=== PATIENT | male | born 1985 | race Caucasian/White ===

== ENCOUNTER 2018-02-07 09:56 | Emergency (ER) | payer MEDICAID, SELFPAY ==
[2018-02-07 09:56] VITALS: BP 145/84; PULSE 91; RESP 18; TEMP 36.6; O2SAT 96; BMI 58.4
--- NOTE | 2018-02-07 10:54 | ED.DEP ---
ED Disposition - Plan for ED Patient: Chief Complaint: Abscess Instructions: ED Abscess IandD Prescriptions: Cephalexin [Keflex] 500 mg PO Q6 #40 capsule Smz/Tmp Ds [Bactrim Ds] 1 tablet PO BID #14 tablet Referrals: Care Physician,No Primary [Primary Care Provider] -
--- NOTE | 2018-02-07 11:03 | ED.DCSUM_ITS ---
- ER Visit Summary Date of Service: 02/07/18 Chief Complaint: Abscess History of Present Illness: The patient is a 32 M presenting with abscess left buttock. This started approximatley 1 week ago. Patient states that initially it was draining at home and now he has been unable to drain it. He states that he was trying to pop it. He denies putting any sharp objects in the area to drain it. He has had no fever. He has history of previous abscess but not in this area. Denies other complaints. Physical Examination: Vitals are stable. Patient is afebrile. Alert no acute distress. HEENT exam is unremarkable. Neck is supple. Lungs are clear and equal bilaterally. Heart is regular rate and rhythm. Abdomen is soft nontender nondistended. Left buttock 2 cm abscess with fluctuance and induration. Normal rectum. Extremities are unremarkable. Skin is warm and dry. No focal neurologic deficit. Remainder of exam is unremarkable. Emergency Department Course and Treatment: Pus was aspirated with 18 gauge needle. I&D was then performed. Anesthetized with lidocaine, incised with 11 blade. Moderate amount of pus was drained. Probed to break up loculations. Irrigated with saline. Patient tolerated this well. He is given Bactrim and Keflex. Advised to follow closely with his primary care physician. Advised return to ED if he has any worsening complaints. Disposition: Discharge home Impression: Buttock abscess, I&D This note was generated with [employer] dictation software. It may contain incorrect words, spelling, and punctuation that were not noted in review of the chart prior to signing ED Disposition - Plan for ED Patient: Chief Complaint: Abscess Instructions: ED Abscess IandD Prescriptions: Cephalexin [Keflex] 500 mg PO Q6 #40 capsule Smz/Tmp Ds [Bactrim Ds] 1 tablet PO BID #14 tablet Referrals: Care Physician,No Primary [Primary Care Provider] -
[2018-02-07] MEDS: Cephalexin 250 MG Capsule 500 MG PO (11:07)
[2018-02-07] MEDS: Smz/Tmp Ds Tablet 1 TABLET PO (11:07)
--- NOTE | 2018-02-07 11:10 | ED.RN ---
PT cleaned of blood with bath wipes. 2x2 placed on abscess and secured with tape. All questions answered, no further concerns.
== END 2018-02-07 11:13 | disposition home or self-care (01) ==
PROVIDERS: Emergency Provider Emergency Medicine
DX: L02.31 Cutaneous abscess of buttock (principal); Z72.0 Tobacco use
CPT/HCPCS: 10060; 99284

== ENCOUNTER 2018-06-16 20:39 | Emergency (ER) | payer MEDICAID, SELFPAY ==
[2018-06-16 20:40] VITALS: BP 154/100; PULSE 88; RESP 16; TEMP 36.7; O2SAT 95; BMI 60.3
--- NOTE | 2018-06-16 20:47 | EKG12_ITS ---
Test Reason : CP Blood Pressure : / mmHG Vent. Rate : 084 BPM Atrial Rate : 084 BPM P-R Int : 172 ms QRS Dur : 100 ms QT Int : 360 ms P-R-T Axes : 049 070 063 degrees QTc Int : 425 ms Normal sinus rhythm Normal ECG Confirmed by TERESA HERNANDEZ MD ([id number]), manuscript editor ERIC BIRMINGHAM ([id number] on 06/17/2018 1:33:57 PM Referred By: REUBEN Confirmed By:TERESA HERNANDEZ MD
[2018-06-16 21:01] VITALS: PULSE 88; RESP 15; O2SAT 95
--- NOTE | 2018-06-16 21:10 | RAD_ITS ---
STUDY: X-RAY CHEST REASON FOR EXAM: Male, 32 years old. Chest pain TECHNIQUE: Single frontal view COMPARISON: None. FINDINGS: The lungs are clear and expanded. There is no demonstrated pleural abnormality. Normal size heart. Normal mediastinum and kwadwo. Normal visualized pulmonary arteries. Normal visualized aortic arch and descending thoracic aorta. Normal visualized thoracic spine. Normal visualized ribs, clavicles, and shoulders. There is no demonstrated abnormality of the visualized soft tissue structures of the upper abdomen. RAD/Chest 1 View (Portable) IMPRESSION: Normal x-ray examination of the chest. Electronically Signed: Crow Baez DO at 22:26 EDT Tel [phone], Service support ,
[2018-06-16 21:33] LABS: Basophil# 0.02 X10^3/uL; Basophil% 0.2 % (0-1); Eosinophil# 0.14 X10^3/uL; Eosinophils% 1.5 % (0-5); Hemoglobin 16.5 g/dl (13.0-16.5); Lymphocyte % 23.9 % (19-41); Mean Corp Hgb Conc 34.4 g/gl (32-36); Mean Corpuscular Volume 84.4 fL (80-94); Mean Platelet Vol. 10.9 fl (6.2-12.0); Monocyte# 0.82 X10^3/uL; Monocyte% 8.9 % (0-10); Neutrophil # 5.99 X10^3/uL (2.7-7.7); Neutrophil % 65.1 % (47-70); POSITIVE COUNT NO; POSITIVE DIFFERENTIAL NO; POSITIVE MORPHOLOGY NO; Platelet Count 201 K/mm3 (150-450); RBC Distribution Width CV 13.1 % (11.6-14.6); RBC Distribution Width SD 39.7 fl (35.1-43.9); Red Blood Count 5.69 M/mm3 (4.6-6.2); White Blood Count 9.2 K/mm3 (4.4-11.0)
[2018-06-16 21:45] LABS: Anion Gap 9 (5-15); BUN 17 mg/dL (7-18); Calcium,Total 8.9 mg/dL (8.5-10.1); Chloride 104 mmol/L (98-107); Creatinine, Serum 0.85 mg/dL (0.70-1.30); EST Glomerular Filtration Rate 111 mL/min (>60); Est Glom Filt Rate - Afr Amer 135 mL/min (>60); Estimated Creatinine Clearance 121.82 ml/min; Glucose 116 mg/dL (74-106); Potassium 3.8 mmol/L (3.5-5.1); Sodium Level 140 mmol/L (136-145)
--- NOTE | 2018-06-16 22:10 | ED.VISSUMM ---
- ER Visit Summary Date of Service: 06/16/18 Chief Complaint: Chest pain History of Present Illness: The patient is a 32 M presenting with chest pain. This started 1.5 hours prior to arrival. He states he has a sharp chest pain that lasts seconds at a time. It is associated with palpitations. He states he has been under a lot of stress. He denies shortness of breath. Pain is currently resolved. He has no PE/DVT risk factors. He is a smoker. Denies other complaints. Physical Examination: Vitals are stable. Patient is afebrile. Alert no acute distress. HEENT exam is unremarkable. Neck is supple. Lungs are clear and equal bilaterally. Heart is regular rate and rhythm. Abdomen is soft nontender nondistended. Extremities are unremarkable. Skin is warm and dry. No focal neurologic deficit. Remainder of exam is unremarkable. Emergency Department Course and Treatment: EKG shows normal sinus rhythm rate of 84 with no acute ischemic changes. CBC, chemistries are unremarkable. Troponin is negative. Delta troponin negative. Chest x-ray shows no acute process. On reevaluation, patient is resting comfortably. He is pain-free in the emergency department. Advised to follow-up with Dr. Mazariegos contact lens molder for no doc. Advised return to ED for worsening complaints. Disposition: Discharge home Impression: Atypical chest pain This note was generated with [employer] dictation software. It may contain incorrect words, spelling, and punctuation that were not noted in review of the chart prior to signing ED Disposition - Plan for ED Patient: Chief Complaint: Chest Pain Instructions: ED Chest Pain Atypical Unkn Cause Referrals: Martha Mazariegos MD [STAFF PHYSICIAN] - Care Physician,No Primary [Primary Care Provider] -
[2018-06-16 22:32] VITALS: BP 148/89; PULSE 85; RESP 14; O2SAT 98
[2018-06-16 23:34] VITALS: BP 120/83; PULSE 79; RESP 16; O2SAT 93
--- NOTE | 2018-06-17 00:38 | ED.DEP ---
ED Disposition - Plan for ED Patient: Chief Complaint: Chest Pain Instructions: ED Chest Pain Atypical Unkn Cause Referrals: Care Physician,No Primary [Primary Care Provider] - Martha Mazariegos MD [STAFF PHYSICIAN] -
[2018-06-17 00:47] VITALS: RESP 18
== END 2018-06-17 00:48 | disposition home or self-care (01) ==
PROVIDERS: Emergency Provider Emergency Medicine
DX: R07.89 Other chest pain (principal); R00.2 Palpitations; M54.9 Dorsalgia, unspecified; Z72.0 Tobacco use; Z79.899 Other long term (current) drug therapy
CPT/HCPCS: 71045; 80048; 84484; 85025; 93005; 99284; A4216

== ENCOUNTER 2018-08-20 20:03 | Emergency (ER) | payer MEDICAID, SELFPAY ==
[2018-08-20 20:03] VITALS: BP 141/83; PULSE 77; RESP 18; TEMP 36.6; O2SAT 97; BMI 61.1
--- NOTE | 2018-08-20 20:19 | CT_ITS ---
STUDY: CT ABDOMEN AND PELVIS WITHOUT CONTRAST REASON FOR EXAM: Male, 33 years old. Right-sided pain while urinating RADIATION DOSAGE (If Supplied By Facility): CTDIvol = ( 34.45 ) mGy, DLP = ( 1807.61 ) mGycm TECHNIQUE: Transaxial images were obtained from the dome of the diaphragm to the symphysis pubis without oral contrast, and without intravenous contrast. Sagittal and coronal images were reconstructed. Individualized dose optimization techniques were used for this CT. COMPARISON: August 25, 2013 FINDINGS: The visualized lung bases are unremarkable. The visualized portions of the heart are within normal limits. Normal liver. Normal gallbladder and extrahepatic biliary system. Normal spleen. Normal pancreas. Normal bilateral adrenal glands. Normal right kidney. Normal left kidney. Normal visualized stomach. Normal small intestine. Normal colon. The appendix is visualized and appears normal. Normal abdominal aorta. Normal inferior vena cava. Normal retroperitoneum. Normal urinary bladder. Normal abdominal wall. Mild anterior wedge fracture superior endplate of L3, unchanged. CT/Abdomen/Pelvis without Cont IMPRESSION: No cause for right flank pain such as radiodense urolithiasis. Electronically Signed: Kenroy Hauser MD at 21:39 EST , Service support ,
[2018-08-20 20:32] LABS: Mucous, Urine 0 SEEN /hpf (<or=2+); Squamous Epithelial Cells - UA 0 SEEN /hpf (0-5); White Blood Cells 0 SEEN /hpf (0-5)
[2018-08-20 20:40] LABS: Color, Urine Yellow (Yellow); Glucose, Dipstick Normal (Normal); Ketone-Dipstick Negative (Negative); Leukocyte Esterase-Dipstick Negative /ul (Negative); Nitrite-Dipstick Negative (Negative); Occult Blood-Urine 25 /ul (Negative); Protein-Dipstick Negative (Negative); Urine Bilirubin Dipstick Negative (Negative); Urine Clarity Clear (Clear); Urine Urobilinogen 1 mg/dl (Normal)
[2018-08-20 20:47] LABS: Bacteria RARE /hpf (None Seen); Red Blood Cells-Urine 0-5 SEEN /hpf (0-5)
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
[2018-08-20 22:07] VITALS: BP 136/82; PULSE 88; RESP 18; O2SAT 98
[2018-08-21 00:29] LABS: Chlamydia Trachomatis by PCR Negative (Negative); Neisserai gonorrhoeae by PCR Negative (Negative); Probe Check PASS; Sample Adequacy Control PASS; Specimen Processing Control PASS
== END 2018-08-20 22:16 | disposition home or self-care (01) ==
PROVIDERS: Emergency Provider Emergency Medicine
DX: R31.9 Hematuria, unspecified (principal); R30.0 Dysuria; M54.9 Dorsalgia, unspecified; G89.29 Other chronic pain; E66.9 Obesity, unspecified; Z72.0 Tobacco use; Z79.899 Other long term (current) drug therapy
CPT/HCPCS: 74176; 81001; 87491; 87591; 99283

== ENCOUNTER → 2018-09-22 10:17 | Outpatient (CLI) | payer MEDICAID, SELFPAY ==
--- NOTE | 2018-09-22 10:45 | RAD_ITS ---
STUDY: X-RAY - RIGHT SHOULDER REASON FOR EXAM: Male, 33 years old. TECHNIQUE: view(s) of the shoulder. COMPARISON: None. FINDINGS: There is no evidence of osseous or articular abnormality. No AC separation or soft tissue calcification RAD/Shoulder min 2 Views IMPRESSION: Normal x-ray examination of the shoulder. Electronically Signed: Jennifer Kramer, at 16:19 EST Tel , Service support ,
--- NOTE | 2018-09-22 11:00 | RAD_ITS ---
STUDY: X-RAY - CERVICAL SPINE REASON FOR EXAM: Male, 33 years old. TECHNIQUE: view(s) of the cervical spine were obtained. COMPARISON: None FINDINGS: Normal anterior atlantoaxial articulation. Normal odontoid process. There is straightening of the cervical lordosis. 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 The prevertebral space and air column are unremarkable. RAD/Cerv Spine 4 or 5 Views IMPRESSION: Congenital fusion between C3-C4. Electronically Signed: Jennifer Kramer, at 16:24 EST Tel , Service support ,
== END ==
DX: M25.511 Pain in right shoulder (principal); M54.2 Cervicalgia
CPT/HCPCS: 72040; 72050; 73030

== ENCOUNTER 2019-12-17 20:01 | Emergency (ER) | payer MEDICAID, SELFPAY ==
[2019-12-17 20:02] VITALS: BP 146/83; PULSE 87; RESP 16; TEMP 36.6; O2SAT 94; BMI 61.3
[2019-12-17 20:17] VITALS: BP 142/88; PULSE 84; RESP 18; O2SAT 97
[2019-12-17 20:19] VITALS: O2SAT 97
--- NOTE | 2019-12-17 20:29 | RAD_ITS ---
STUDY: X-RAY CHEST REASON FOR EXAM: Male, 34 years old. CHEST TIGHTNESS, SHORTNESS OF BREATH TECHNIQUE: Single AP portable view of the chest. COMPARISON: June 16, 2018 FINDINGS: The lungs are clear and expanded. There is no demonstrated pleural abnormality. Normal size heart. Normal mediastinum and kwadwo. Normal visualized pulmonary arteries. Normal visualized aortic arch and descending thoracic aorta. Normal visualized thoracic spine. Normal visualized ribs, clavicles, and shoulders. There is no demonstrated abnormality of the visualized soft tissue structures of the upper abdomen. RAD/Chest 1 View (Portable) IMPRESSION: Normal x-ray examination of the chest. Electronically Signed: Bony Mccarty MD at 21:05 EDT , Service support ,
--- NOTE | 2019-12-17 20:29 | EKG12_ITS ---
Test Reason : SOB,CP Blood Pressure : / mmHG Vent. Rate : 079 BPM Atrial Rate : 079 BPM P-R Int : 168 ms QRS Dur : 100 ms QT Int : 374 ms P-R-T Axes : 044 065 052 degrees QTc Int : 428 ms Normal sinus rhythm Normal ECG Confirmed by DAVID HENNESSY, TERESA ([id number]), fan mail editor WILI LEVIN ([id number]) on 12/20/2019 8:34:31 AM Referred By: ANABELA Confirmed By:TERESA HERNANDEZ MD
[2019-12-17 20:42] VITALS: O2SAT 96
[2019-12-17] MEDS: Aspirin 81 MG TAB.CHEW 324 MG PO (20:43)
[2019-12-17 20:49] LABS: Absolute Lymphocyte Count 2.41 X10^3/uL (0.83-4.51); Absolute Neutrophil Count 6.4 X10^3/uL (2.0-7.7); Basophil# 0.03 X10^3/uL; Basophil% 0.3 % (0-1); Eosinophil# 0.19 X10^3/uL; Eosinophils% 1.9 % (0-5); Hematocrit 47.7 % (40-54); Hemoglobin 16.2 g/dL (13.0-16.5); Lymphocyte # 2.41 X10^3/ul (4.0); Lymphocyte % 24.4 % (19-41); Mean Corpuscular Hgb 28.9 pg (27.0-32.0); Monocyte# 0.77 X10^3/uL; Monocyte% 7.8 % (0-10); NRBC Flagged by Analyzer 0 % (0-5); Neutrophil # 6.39 X10^3/uL (2.7-7.7); Neutrophil % 64.9 % (47-70); Platelet Count 195 K/mm3 (150-450); RBC Distribution Width SD 39.8 fl (35.1-43.9); Red Blood Count 5.61 M/mm3 (4.6-6.2); White Blood Count 9.9 K/mm3 (4.4-11.0)
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
[2019-12-17 21:17] LABS: Anion Gap 5 (5-15); BUN 14 mg/dL (7-18); BUN/Creat Ratio 15.3 RATIO (10-20); Chloride 106 mmol/L (98-107); Creatinine, Serum 0.92 mg/dL (0.70-1.30); EST Glomerular Filtration Rate 101 mL/min (>60); Est Glom Filt Rate - Afr Amer 122 mL/min (>60); Estimated Creatinine Clearance 110.49 ml/min; Glucose 138 mg/dL (74-106); Sodium Level 141 mmol/L (136-145)
--- NOTE | 2019-12-17 21:23 | ED.DEP ---
ED Disposition - Plan for ED Patient: Instructions: CHEST PAIN, Uncertain Cause Referrals: Ramesh Galvez MD [STAFF PHYSICIAN] -
[2019-12-17] MEDS: LORazepam 0.5 MG Tablet PO (21:28)
[2019-12-17] MEDS: Ketorolac 30 MG/ML Syringe IV (21:28)
[2019-12-17 21:39] VITALS: O2SAT 95
[2019-12-17 22:01] VITALS: BP 123/82; PULSE 77; RESP 23; O2SAT 94
--- NOTE | 2019-12-17 22:22 | CT_ITS ---
STUDY: CTA CHEST REASON FOR EXAM: Male, 34 years old. SOB AND SLIGHT CHEST PAIN X FEW DAYS -- HX:GERD RADIATION DOSAGE (If Supplied By Facility): CTDIvol = ( 12.27 ) mGy, DLP = ( 543.39 ) mGycm TECHNIQUE: The examination was performed with the intravenous administration of IV 100mL Isovue-370. Post-processing of the angiographic images was performed, with multiplanar reformation and 3D reconstruction. Individualized dose optimization techniques were used for this CT. COMPARISON: None. FINDINGS: There is limited/suboptimal enhancement of the main pulmonary artery and right and left pulmonary arteries. No large pulmonary embolus is seen in the main arteries however smaller emboli cannot be excluded. There is poor and limited enhancement of the bilateral peripheral pulmonary arteries which cannot be evaluated for pulmonary emboli. Normal thoracic aorta and visualized great vessels. There is no demonstrated aortic dissection. Normal heart size and pericardium. Normal mediastinum. Normal hilar regions. Normal visualized trachea and bronchi. The lungs are well expanded. No consolidation or pleural effusion is seen. Linear scarring or atelectasis is present in the right upper lobe. No significant pulmonary edema. Normal pleura. Normal chest wall structures. Normal osseous structures. No gross abnormality visualized in the upper abdomen. CT/CTA Chest W/WO Contrast IMPRESSION: 1. There is limited/suboptimal enhancement of the main pulmonary artery and right and left pulmonary arteries. No large pulmonary embolus is seen in the main arteries however smaller emboli cannot be excluded. 2. There is poor and limited enhancement of the bilateral peripheral pulmonary arteries which cannot be evaluated for pulmonary emboli. 3. No consolidation or pleural effusion is seen. Linear scarring or atelectasis is present in the right upper lobe. No significant pulmonary edema. Electronically Signed: Bony Mccarty MD at 23:38 EDT , Service support ,
--- NOTE | 2019-12-18 00:29 | ED.DCSUM_ITS ---
- ER Visit Summary Date of Service: 12/18/19 Chief Complaint: [Addendum to initial dictation by Dr. Reyes] History of Present Illness: The patient is a 34 M [presented to the emergency department with chest discomfort and shortness of breath that he has been dealing with for some time. Care of patient turned over to me awaiting a delta troponin and results of CT scan of the chest with contrast. Patient really has no PE risk factors. He denies recent travel or surgery. He denies long periods of immobilization. There is no family history of heart disease. 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 Cranial nerves II through XII grossly intact. TMs clear. Mucous membranes moist. No adenopathy. Cardiovascular-regular rate and rhythm without murmur or ectopy Lungs-clear to auscultation, chest wall stable without crepitus or subcu emphysema Abdomen-normoactive bowel sounds, soft, nontender, no rebound or rigidity, no peritoneal signs. Extremities-intact ?4, normal range of motion, normal pulses, atraumatic] Test Results: [CT scan of the chest with IV contrast was obtained and was limited in that the contrast timing was poor therefore difficult to assess for peripheral pulmonary emboli however there were no evidence of large central PEs. Delta troponin was negative.] Emergency Department Course and Treatment: [] Treatment Plan: [Patient will be given referral to primary care physician. Patient will also be given referral to counseling center. Patient will be given a prescription for Ativan as needed for anxiety.] Disposition: [Discharged home in stable condition] Impression: [Chest pain-etiology uncertain Anxiety] This note was generated with [employer] software. It may contain incorrect words, spelling, and punctuation that were not noted in review of the chart prior to signing ED Disposition - Plan for ED Patient: Instructions: CHEST PAIN, Uncertain Cause Referrals: Ramesh Galvez MD [STAFF PHYSICIAN] -
--- NOTE | 2019-12-18 00:32 | ED.DEP ---
ED Disposition - Plan for ED Patient: Instructions: CHEST PAIN, Uncertain Cause, Panic Attack Prescriptions: Lorazepam [Ativan] 1 mg PO TID PRN #10 tab PRN Reason: Anxiety Prescription Printed Referrals: Ramesh Galvez MD [STAFF PHYSICIAN] - Martha Mazariegos MD [STAFF PHYSICIAN] - 3-5 Days Counseling,Center [GROUP OF PHYSICIANS] - 3-5 Days
[2019-12-18 00:55] VITALS: BP 132/83; PULSE 68; RESP 28; O2SAT 98
== END 2019-12-18 00:56 | disposition home or self-care (01) ==
PROVIDERS: Emergency Provider Emergency Medicine
DX: R07.89 Other chest pain (principal); R06.00 Dyspnea, unspecified; R05 Cough; W50.0XXA Accidental hit or strike by another person, initial encounter; Y93.9 Activity, unspecified; Y92.9 Unspecified place or not applicable; F41.9 Anxiety disorder, unspecified; F17.200 Nicotine dependence, unspecified, uncomplicated
CPT/HCPCS: 71045; 71275; 80048; 84484; 85025; 93005; 96374; 99285; Q9967; A4216

== ENCOUNTER 2020-05-17 16:55 | Emergency (ER) | payer MEDICAID, SELFPAY ==
[2020-05-17 16:56] VITALS: BP 148/92; PULSE 101; PULSE 110; RESP 16; RESP 18; TEMP 37.3; O2SAT 94; O2SAT 95; BMI 59.7
--- NOTE | 2020-05-17 18:36 | ED.VIS.GEN ---
History of Present Illness Chief Complaint: Sore Throat Informant: Patient Narrative: 34-year-old male presenting with sore throat. He noticed it a few days ago. He states that 1 of his children had strep throat the week before. He states that yesterday his throat hurt worse and he had a low-grade fever. Today he presents out of concern that he has strep throat. He has no signs or symptoms of COVID?19 such as loss of taste or smell, cough, shortness of breath Past Medical History - Allergies and Home Meds Allergies/Adverse Reactions: Allergies fentanyl Adverse Reaction (Verified 05/17/20 16:55) Rash hydrocodone [From [place]] Adverse Reaction (Verified 05/17/20 16:55) Rash Primary Care Physician: Care Physician,No Primary [Primary Care Provider] - Past Medical History: - - Leigh Ann, chronic back pain Surgical History: noncontributory Lives: Spouse/ Significant Other, With Family Smoking Status: Current every day smoker Drugs: None Review of Systems General: Reports: Fever Eyes: Denies: Visual changes - bilaterally, Diplopia ENT: Reports: Sore throat Cardiovascular: Denies: Chest pain, Palpitations Respiratory: Denies: Dyspnea, Cough, Dyspnea on exertion Gastrointestinal: Denies: Abdominal pain, Nausea, Vomiting, Diarrhea, Melena, Hematochezia Genitourinary: Denies: Dysuria, Hematuria, Frequency Musculoskeletal: Denies: Back pain, Extremity Pain Skin: Denies: Rash, Wounds Neurological: Reports: Headache Physical Exam Vital Signs/Narrative: Vital Signs Temp Pulse Resp BP Pulse Ox 05/17/20 16:56 99.2 F H 101 H 16 148/92 H 94 Inital Vital Signs reviewed: Yes General: Well nourished, No Acute Distress Head: Normocephalic, Atraumatic Eyes: Perrl, EOMI ENT: Moist mucous membranes, TM's clear, - - Erythema and exudates of the tonsils. Patent airway. No stridor. Tolerating his own secretions. Neck: No lymphadenopathy - Anterior bilateral Cardiovascular: Regular rate, Regular rhythm Respiratory: No distress, CTA bilaterally Skin: Normal color, No rash Neurological: Alert, Oriented x3 Psychological: Normal affect Diagnostic/Tx/Re-eval - Medical Decision Making Patient presents with her throat. He has erythema and tonsillar exudates. He has bilateral anterior lymphadenopathy. Rapid strep is positive. Patient given Decadron, Augmentin, Tylenol in the ED. He will be given Augmentin for home. He is discharged home in stable condition. Impression: 1. Strep pharyngitis ED Disposition - Plan for ED Patient: Disposition: Home or Assisted Living Instructions: ED Pharyngitis Strep Confirmed Prescriptions: Amox/Clavulanate Tablet [Augmentin Tablet] 875 mg PO Q12H #20 tab Transmission Status: Sent to 911 View #30 Referrals: Care Physician,No Primary [Primary Care Provider] -
[2020-05-17] MEDS: Acetaminophen 500 MG Tablet 1000 MG PO (18:54)
[2020-05-17] MEDS: dexAMETHasone 10 MG/ML Vial PO.IVFORM (18:54)
[2020-05-17] MEDS: Amox/Clavulanate 875 MG Tablet PO (18:54)
== END 2020-05-17 18:59 | disposition home or self-care (01) ==
LOC: ED 18:59
PROVIDERS: Emergency Provider Student in an Organized Health Care Education/Training Program
DX: J02.0 Streptococcal pharyngitis (principal); M54.9 Dorsalgia, unspecified; G89.29 Other chronic pain; F17.200 Nicotine dependence, unspecified, uncomplicated; Z79.899 Other long term (current) drug therapy
CPT/HCPCS: 87880; 99282

== ENCOUNTER 2021-09-25 15:32 | Emergency (ER) | payer MEDICAID, SELFPAY ==
[2021-09-25 15:32] VITALS: BP 155/94; PULSE 85; RESP 20; TEMP 35.2; O2SAT 96; BMI 59.3
--- NOTE | 2021-09-25 17:45 | EKG12_ITS ---
Test Reason : NEAR SYNCOPE Blood Pressure : / mmHG Vent. Rate : 079 BPM Atrial Rate : 079 BPM P-R Int : 180 ms QRS Dur : 108 ms QT Int : 380 ms P-R-T Axes : 051 069 056 degrees QTc Int : 435 ms Normal sinus rhythm Normal ECG Confirmed by DAVID HENNESSY, TERESA ([id number]), editor in chief newspaper [employer] ([id number]) on 10/01/2021 10:27:00 AM Referred By: DEBBIE Confirmed By:TERESA HERNANDEZ MD
--- NOTE | 2021-09-25 17:46 | EDS_ITS ---
HPI History of Present Illness Chief Complaint: Dizziness Detail of Chief Complaint: Lightheaded feeling that started yesterday Informant: patient Narrative Narrative: Patient presents to the emergency department complaint of a lightheaded feeling that started yesterday. Patient states he has had similar episodes in the past off-and-on but typically has not lasted this long. Patient states that he just feels like he is out of it at times. Patient states that his is sick at home and they tested her for Covid 3 times and has been negative all 3 times. He has had some congestion in his ears and sinuses. He denies cough. He denies fever. He denies body aches. He denies headache. Prior similar symptoms: Yes [facility] Medical History (Updated 09/25/21 @ 19:[address] Jaylen Davidson, ) Back pain Home Medications oxycodone 15 mg PO TID 02/07/18 [History Last Taken 08/20/18] Allergy/AdvReac Type Severity Reaction Status Date / Time fentanyl AdvReac Rash Verified 09/25/21 15:34 hydrocodone [From [place]] AdvReac Rash Verified 09/25/21 15:34 Social History Smoking Status: Current every day smoker tobacco type: cigarettes ROS ROS ED Constitutional Constitutional ED: Reports systems reviewed and no addt'l complaints, except as documented; Denies body ache(s), change in weight or chills Eyes Eyes: Denies acute decrease in peripheral vision, change in vision, double vision or loss of vision ENT ENT ED: Reports none and other Details: Ear pressure and sinus congestion ; Denies ear pain, lip swelling, loss taste/smell, neck pain, otalgia or sore throat Cardiovascular Cardiovascular: Reports none; Denies abdominal pain, chest pain with activity, leg edema, lightheadedness, palpitations, rapid heart rate or syncope Respiratory/Chest Respiratory/Chest: Reports none; Denies change in mental status, dry cough, dyspnea, hemoptysis, shortness of breath at rest or shortness of breath with exertion Gastrointestinal Gastrointestinal: Reports none; Denies abdominal pain, change in stool character, diarrhea, hematemesis, hematochezia, melena, rectal bleeding or vomiting Genitourinary Genitourinary ED: Reports none; Denies abdominal discomfort, anuria, dysuria, genital pain or polyuria Musculoskeletal Musculoskeletal: Reports none; Denies arthralgias, back pain, difficulty walking, extremity pain, muscle weakness or myalgias Integumentary Reports none; Denies abscess or rash Neurologic Neurologic: Reports none and other Details: Dizziness/lightheadedness ; Denies abnormal gait, confusion, focal weakness, frequent falls, headache(s), loss of vision, numbness, paresthesias, radicular pain, vertigo or weakness Psychiatric Psychiatric: Reports systems reviewed and no addt'l complaints, except as documented and none; Denies behavioral changes, confusion, difficulty concentrating, hallucinations, suicidal ideation, tactile hallucinations or visual hallucinations Endocrine Endocrinology: Denies none, cold intolerance, excessive sweating, fatigue or heat intolerance Hematologic/Lymphatic Hematologic/Lymphatic: Reports none; Denies anemia, easy bleeding or easy bruising Allergic/Immunologic Allergic/Immunologic ED: Denies as per HPI, none, lip swelling, mouth swelling, throat swelling, tongue swelling or hives EXAM Physical Exam Const Vital Signs: 09/25/21 15:32 09/25/21 18:05 09/25/21 18:06 Temperature 95.3 F L Temperature Source Temporal Pulse Rate 85 80 Pulse Rate [Lying] Pulse Rate [Sitting] Pulse Rate [Standing] Respiratory Rate 20 H 22 H Respiratory Effort Normal Respiratory Pattern Tachypnea Blood Pressure 155/94 H Blood Pressure [Lying] Blood Pressure [Sitting] Blood Pressure [Standing] Blood Pressure Mean 114 Blood Pressure Mean [Lying] Blood Pressure Mean [Sitting] Blood Pressure Mean [Standing] Pulse Ox 96 94 Oxygen Delivery Method Room Air Room Air 09/25/21 18:41 Temperature Temperature Source Pulse Rate Pulse Rate [Lying] 75 Pulse Rate [Sitting] 79 Pulse Rate [Standing] 80 Respiratory Rate Respiratory Effort Respiratory Pattern Blood Pressure Blood Pressure [Lying] 123/69 H Blood Pressure [Sitting] 133/79 H Blood Pressure [Standing] 144/84 H Blood Pressure Mean Blood Pressure Mean [Lying] 87 Blood Pressure Mean [Sitting] 97 Blood Pressure Mean [Standing] 104 Pulse Ox Oxygen Delivery Method Positive well nourished and well developed General Appearance ED: well developed and NAD HEENT Reports TM's clear and moist mucous membranes normocephalic and atraumatic; Negative for trauma or tenderness Tympanic Membrane ED: Yes TM's clear Eyes PERRL and EOMs intact bilaterally General Eye ED: Negative for pale conjunctiva or scleral icterus Neck no lymphadenopathy, supple and no JVD General: Negative for tenderness Chest Wall inspection of chest normal and palpation of chest normal Chest: Negative for tenderness Resp normal respiratory effort and clear to auscultation bilaterally Effort and Inspection: Negative for respiratory distress or pain with movement Auscultation: Negative for rhonchi, wheezes or diminished lung sounds Cardio regular rate, regular rhythm, S1 normal heart sound, S2 normal heart sound and no murmurs Peripheral Pulses: pulses 2+ throughout GI normal to inspection, nondistended, normoactive bowel sounds, soft to palpation, non-tender, non-distended and no masses Back/Spine no CVA tenderness and no thoracic nor lumbar tenderness Extremity normal to inspection General Extremety ED: Negative for edema General Extremity: Negative for edema Neuro oriented x3, CN's II-XII intact bilaterally, no sensory deficits noted and gait normal Sensorium / Orientation: awake, alert, oriented to person, oriented to place and oriented to time Motor Exam: strength 5/5 throughout and strength abnormal Psych mental status grossly normal Skin no rashes or lesions noted and no wounds MDM MDM MDM Narrative Medical decision making narrative: IV line established on arrival. Orthostatic vital signs were negative. Lab work-up was unremarkable. Covid testing was ne gative. I discussed results with patient and he states that he thinks he has a migraine now. Patient will be given Reglan, Benadryl, and Toradol. Patient will be discharged to home. I suspect possibly a viral URI as the etiology of his symptoms. Patient to follow-up with primary care physician in 3 to 5 days as needed. Lab Data Attestation: I reviewed the patient's lab results. Labs: Laboratory Results - last 24 hr 09/25/21 09/25/21 17:52 17:52 WBC 8.9 RBC 5.20 Hgb 15.2 Hct 43.9 MCV 84.4 MCH 29.2 MCHC 34.6 RDW Std Deviation 38.7 RDW Coeff of Jessica 12.6 Plt Count 211 MPV 10.6 Immature Gran % (Auto) 0.900 Neut % (Auto) 63.4 Lymph % (Auto) 26.3 [place] % (Auto) 7.1 Eos % (Auto) 2.0 Baso % (Auto) 0.3 Absolute Neuts (auto) 5.6 Absolute Lymphs (auto) 2.33 Nucleated RBC % 0 Sodium 140 Potassium 3.7 Chloride 107 Carbon Dioxide 29.0 Anion Gap 4 L BUN 15 Creatinine 0.74 Estim Creat Clear Calc 134.80 Est GFR (MDRD) Af Amer 155 Est GFR (MDRD) Non-Af 128 BUN/Creatinine Ratio 20.3 H Glucose 164 H Calcium 9.0 Troponin I High Sens 4 EKG Initial EKG: Attestation: I personally reviewed and interpreted this EKG as follows: Comments: Sinus rhythm with a ventricular rate of 79 bpm with no acute ST segment changes Prior EKG tracings: not available for review Discharge Plan Triage Chief Complaint: Dizziness ED Provider: Jaylen Davidson Dx/Rx/DC Orders Clinical Impression: Viral URI, Migraine Instructions: ED, Migraine (Classical), ED URI, Viral, No Abx (Adult) Prescriptions: No Action oxycodone 5 MG tablet 15 mg PO TID RF: 0 Primary Care Provider: Care Physician,No Primary Referrals: Garrick Espinal MD [STAFF PHYSICIAN] - 3-5 Days Care Physician,No Primary [Primary Care Provider] - Disposition Disposition: Home, Self Care
[2021-09-25 18:05] VITALS: PULSE 80; RESP 22; O2SAT 94
[2021-09-25] MEDS: 0.9% Normal Saline 1,000 ML 1000 ML IV (18:06)
[2021-09-25 18:12] LABS: Absolute Lymphocyte Count 2.33 X10^3/uL (0.83-4.51); Absolute Neutrophil Count 5.6 X10^3/uL (2.0-7.7); Basophil# 0.03 X10^3/uL; Basophil% 0.3 % (0-1); Eosinophil# 0.18 X10^3/uL; Hematocrit 43.9 % (40-54); Hemoglobin 15.2 g/dL (13.0-16.5); Lymphocyte # 2.33 X10^3/ul (0.83-4.51); Lymphocyte % 26.3 % (19-41); Mean Corp Hgb Conc 34.6 g/dL (32-36); Mean Corpuscular Hgb 29.2 pg (27.0-32.0); Mean Corpuscular Volume 84.4 fL (80-94); Mean Platelet Vol. 10.6 fl (6.2-12.0); Monocyte# 0.63 X10^3/uL; Monocyte% 7.1 % (0-10); NRBC Flagged by Analyzer 0 % (0-5); Neutrophil # 5.61 X10^3/uL (2.7-7.7); Neutrophil % 63.4 % (47-70); Platelet Count 211 K/mm3 (150-450); RBC Distribution Width CV 12.6 % (11.6-14.6); RBC Distribution Width SD 38.7 fl (35.1-43.9); White Blood Count 8.9 K/mm3 (4.4-11.0)
[2021-09-25 18:29] LABS: Anion Gap 4 (5-15); BUN 15 mg/dL (7-18); BUN/Creat Ratio 20.3 RATIO (10-20); Chloride 107 mmol/L (98-107); Creatinine, Serum 0.74 mg/dL (0.70-1.30); EST Glomerular Filtration Rate 128 mL/min (>60); Est Glom Filt Rate - Afr Amer 155 mL/min (>60); Glucose 164 mg/dL (74-106); Potassium 3.7 mmol/L (3.5-5.1); Sodium Level 140 mmol/L (136-145); Troponin-I HS 4 pg/mL (3.0-78.0)
[2021-09-25 18:41] VITALS: BP 123/69; BP 133/79; BP 144/84; PULSE 75; PULSE 79; PULSE 80
[2021-09-25] MEDS: Ketorolac 30 MG/ML Syringe IV (19:39)
[2021-09-25] MEDS: DiphenhydrAMINE 50 MG/ML Syringe 25 MG IV (19:40)
[2021-09-25] MEDS: Metoclopramide 10 MG/2 ML Vial IV (19:40)
== END 2021-09-25 19:48 | disposition home or self-care (01) ==
PROVIDERS: Emergency Provider Emergency Medicine
DX: J06.9 Acute upper respiratory infection, unspecified (principal); G43.909 Migraine, unspecified, not intractable, without status migrainosus; Z20.822 Contact with and (suspected) exposure to COVID-19; F17.210 Nicotine dependence, cigarettes, uncomplicated
CPT/HCPCS: 80048; 84484; 85025; 87426; 93005; 96361; 96374; 96375; 99284; J7030

== ENCOUNTER 2022-08-25 06:05 | Emergency (ER) | payer MEDICAID, SELFPAY ==
[2022-08-25 06:05] VITALS: BP 161/102; PULSE 82; RESP 16; TEMP 36.6; O2SAT 96; BMI 50.2
--- NOTE | 2022-08-25 06:29 | ED.VIS.GI ---
HPI HPI - GI History of Present Illness Chief Complaint: Abd Pain Informant: patient Abdominal Pain/Flank Pain Onset: Today Context: Sudden Onset Timing: Continuous Quality: Aching, Burning, Cramping, Sharp and Stabbing Location: Right Flank Worsened by: Nothing Relieved by: Nothing Nausea/Vomiting/Emesis GI Symptom: Positive for Nausea and Vomiting Quality: Positive for Nonbilious; Negative for Blood streaks, Coffee ground or Hematemesis Diarrhea/Melena/Hematochezia GI Symptom: Negative for Diarrhea, Melena or Hematochezia Associated Symptoms Associated Symptoms: Negative for Dysuria, Frequency or Hematuria Narrative Narrative: Patient presents with right flank pain and abdominal pain that began today. Patient states it woke him up about 1 AM. Patient states he has been unable to find position of comfort. Patient states the pain has been constant. Patient describes it as cramping, aching, burning, sharp, and stabbing. Patient states it is over the right flank. Patient states nothing makes it better nothing makes it worse. Patient admits to some nausea and vomiting. Patient denies any diarrhea, melena, or hematochezia. Patient denies any dysuria, frequency, or hematuria. Patient had a recent gastric sleeve surgery on 07/29/2022. This was done at [facility]. [facility] Medical History Back pain Home Medications oxycodone 5 mg tablet 15 mg PO TID 02/07/18 [History Last Taken 08/20/18] Allergy/AdvReac Type Severity Reaction Status Date / Time fentanyl AdvReac Rash Verified 09/25/21 15:34 hydrocodone [From [place]] AdvReac Rash Verified 09/25/21 15:34 Surgical History S/P gastric sleeve procedure Social History Smoking Status: Former smoker ROS ROS ED Constitutional Constitutional ED: Denies chills or fever(s) Eyes Eyes: Denies blurry vision or change in vision ENT ENT ED: Denies rhinorrhea or sore throat Cardiovascular Cardiovascular: Denies chest pain or palpitations Respiratory/Chest Respiratory/Chest: Denies cough or dyspnea Gastrointestinal Gastrointestinal: Reports abdominal pain, nausea and vomiting Genitourinary Genitourinary ED: Denies dysuria or hematuria Musculoskeletal Musculoskeletal: Denies back pain or neck pain Integumentary Denies abscess or rash Neurologic Neurologic: Denies headache(s) or weakness Allergic/Immunologic Allergic/Immunologic ED: Denies mouth swelling or urticaria EXAM Physical Exam Const Vital Signs: 08/25/22 06:05 Temperature 97.9 F Temperature Source Oral Pulse Rate 82 Respiratory Rate 16 Blood Pressure 161/102 H Blood Pressure Mean 121 Pulse Ox 96 Oxygen Delivery Method Room Air Positive well nourished, well developed and obese General Appearance ED: well developed and NAD Nutritional Appearance: obese HEENT Reports moist mucous membranes Neck supple and no JVD Resp normal respiratory effort and clear to auscultation bilaterally Cardio regular rate, regular rhythm and no murmurs GI normal to inspection, nondistended, normoactive bowel sounds Palpation: soft and tender epigastric, RLQ, RUQ and suprapubic; Negative for guarding or rebound tenderness present Back/Spine General Back: CVA tenderness right Extremity normal to inspection General Extremety ED: Negative for edema or tenderness General Extremity: Negative for edema Neuro oriented x3, CN's II-XII intact bilaterally and no sensory deficits noted Sensorium / Orientation: alert Motor Exam: strength 5/5 throughout Psych mental status grossly normal Skin no rashes or lesions noted MDM MDM MDM Narrative Medical decision making narrative: Patient was given IV fluids, morphine, and Zofran. CBC was within normal limits. Comprehensive metabolic profile was essentially within normal limits. Anion gap was slightly elevated at 16. Total bilirubin was slightly elevated at 1.6. Urinalysis shows occult blood of 250 with greater than 100 red blood cells. There is no evidence of urinary tract infection. CT scan of the abdomen and pelvis was obtained. There is a 1 mm calculus at the right distal ureter with mild hydronephrosis. This was interpreted by the radiologist and reviewed by myself. Patient was given a repeat dose of morphine. Patient's OARRS report was reviewed. Patient has a current prescription for oxycodone. Patient was instructed to take this as prescribed for pain. Patient was instructed to follow-up with his primary care physician in 5 to 7 days. Patient was also given referral for urology for follow-up care. Patient understood and was agreeable with the plan. All questions were answered. Lab Data Attestation: I reviewed the patient's lab results. Labs: Laboratory Results - last 24 hr 08/25/22 08/25/22 08/25/22 06:35 06:35 06:55 WBC 5.9 RBC 6.01 Hgb 17.0 H Hct 49.4 MCV 82.2 MCH 28.3 MCHC 34.4 RDW Std Deviation 40.6 RDW Coeff of Jessica 13.7 Plt Count 216 MPV 12.2 H Immature Gran % (Auto) 0.300 Neut % (Auto) 56.6 Lymph % (Auto) 23.8 [place] % (Auto) 16.8 H Eos % (Auto) 2.2 Baso % (Auto) 0.3 Absolute Neuts (auto) 3.3 Absolute Lymphs (auto) 1.40 Nucleated RBC % 0 Sodium 140 Potassium 3.3 L Chloride 104 Carbon Dioxide 20.0 L Anion Gap 16 H BUN 11 Creatinine 0.85 Estim Creat Clear Calc 120.14 Est GFR (MDRD) Af Amer 131 Est GFR (MDRD) Non-Af 108 BUN/Creatinine Ratio 12.9 Glucose 144 H Calcium 9.6 Total Bilirubin 1.60 H AST 45 H ALT 134 H Alkaline Phosphatase 74 Total Protein 7.7 Albumin 3.9 Globulin 3.8 Albumin/Globulin Ratio 1.0 Lipase 149 Urine Color Red Urine Clarity Turbid Urine pH 6.5 Ur Specific [place] 1.025 Urine Protein 500 H Urine Glucose (UA) Normal Urine Ketones 150 A* Urine Occult Blood 250 H Urine Nitrite Negative Urine Bilirubin 3 H Urine Urobilinogen 4 H Ur Leukocyte Esterase Negative Urine RBC > 100 SEEN Urine WBC 0 SEEN Ur Squamous Epith Cells 0-5 SEEN Urine Bacteria 0 SEEN Hyaline Casts 0-5 SEEN Urine Mucus 4+ Radiography Diagnostic Testing: Clinical Impression(s) from Imaging Studies Abdomen/Pelvis CT 08/25/22 06:32 IMPRESSION: 1. Mild right hydroureteronephrosis due to a 1 mm stone in the distal right ureter. 2. Normal appendix. 3. Fatty liver. 4. Status post gastric sleeve surgery. Electronically Signed: Zeus Daily MD at 7:38 EST , Discharge Plan Triage Chief Complaint: Abd Pain ED Provider: Bryce Sullivan Dx/Rx/DC Orders Clinical Impression: Right distal ureteral calculus, Right flank pain Instructions: ED Kidney Stone w/ Colic Prescriptions: No Action oxycodone 5 MG tablet 15 mg PO TID Primary Care Provider: Care Physician,No Primary Referrals: Killian Mcdonough MD [Med Staff - Active Staff] - 5-7 Days Town Doctor,Out of [Non-Staff] - 3-5 Days Activity Restrictions/Additional Instructions: Continue your oxycodone as prescribed for pain. Disposition Disposition: Home, Self Care
--- NOTE | 2022-08-25 06:32 | CT_ITS ---
EXAM: CT ABDOMEN AND PELVIS WITHOUT INTRAVENOUS CONTRAST CLINICAL INDICATION: Right flank pain TECHNIQUE: Helically acquired images were obtained of the abdomen and pelvis without intravenous contrast. This CT exam was performed using one or more of the following dose reduction techniques: automated exposure control, adjustment of the mA and/or kV according to patient size, and/or use of iterative reconstruction technique. This report was created using [employer] report generation technology. RADIATION DOSE: CTDIvol = 34.03 mGy, DLP = 1700.24 mGy-cm. COMPARISON: 08/20/2018. FINDINGS: LOWER THORAX: Unremarkable. Lung bases are clear. No cardiomegaly. No significant pericardial effusion. ABDOMEN: LIVER: There is diffuse low-attenuation of the liver. GALLBLADDER AND BILE DUCTS: Unremarkable. No calcified gallstones. No gallbladder distention or wall edema. No intra- or extrahepatic biliary ductal dilation. PANCREAS: Unremarkable. No focal cystic mass. SPLEEN: Unremarkable. Normal size without focal cystic or solid mass. ADRENALS: Unremarkable. No nodules. KIDNEYS AND URETERS: Mild right hydroureteronephrosis due to a 1 mm stone in the distal right ureter. Normal renal size and position. STOMACH AND BOWEL: Status post gastric sleeve surgery. No stomach or bowel distention. No focal inflammatory change. PELVIS: APPENDIX: Normal appendix. BLADDER: Unremarkable. REPRODUCTIVE: Unremarkable as visualized. No mass. ABDOMEN and PELVIS: INTRAPERITONEAL SPACE: Unremarkable. No ascites or other fluid collection. No free air. BONES/JOINTS: Unremarkable. No suspicious lytic or blastic abnormality. SOFT TISSUES: Unremarkable. No discrete abdominal or pelvic wall hernia. VASCULATURE: Unremarkable. Abdominal aorta is non-dilated. LYMPH NODES: Unremarkable. No enlarged lymph nodes. CT/Abdomen/Pelvis without Cont IMPRESSION: 1. Mild right hydroureteronephrosis due to a 1 mm stone in the distal right ureter. 2. Normal appendix. 3. Fatty liver. 4. Status post gastric sleeve surgery. Electronically Signed: Zeus Daily MD at 7:38 EST ,
[2022-08-25 06:40] LABS: Absolute Neutrophil Count 3.3 X10^3/uL (2.0-7.7); Basophil# 0.02 X10^3/uL; Basophil% 0.3 % (0-1); Eosinophil# 0.13 X10^3/uL; Eosinophils% 2.2 % (0-5); Hematocrit 49.4 % (40-54); Lymphocyte % 23.8 % (19-41); Mean Corp Hgb Conc 34.4 g/dL (32-36); Mean Corpuscular Hgb 28.3 pg (27.0-32.0); Mean Corpuscular Volume 82.2 fL (80-94); Mean Platelet Vol. 12.2 fl (6.2-12.0); Monocyte# 0.99 X10^3/uL; Monocyte% 16.8 % (0-10); NRBC Flagged by Analyzer 0 % (0-5); Neutrophil # 3.33 X10^3/uL (2.7-7.7); Neutrophil % 56.6 % (47-70); Platelet Count 216 K/mm3 (150-450); RBC Distribution Width CV 13.7 % (11.6-14.6); RBC Distribution Width SD 40.6 fl (35.1-43.9); Red Blood Count 6.01 M/mm3 (4.6-6.2); White Blood Count 5.9 K/mm3 (4.4-11.0)
[2022-08-25] MEDS: 0.9% Normal Saline 1,000 ML 1000 ML IV (06:44)
[2022-08-25] MEDS: Morphine 4 MG/ML Syringe IV ×2 (06:44→07:48)
[2022-08-25] MEDS: Ondansetron 4 MG/2 ML Vial IV (06:45)
[2022-08-25 06:56] LABS: AST(SGOT) 45 U/L (15-37); Alanine Aminotransfer ALT/SGPT 134 U/L (16-61); Albumin, Serum 3.9 g/dL (3.2-5.0); Alkaline Phosphatase 74 U/L (45-117); Anion Gap 16 (5-15); BUN 11 mg/dL (7-18); BUN/Creat Ratio 12.9 RATIO (10-20); Calcium,Total 9.6 mg/dL (8.5-10.1); Chloride 104 mmol/L (98-107); Creatinine, Serum 0.85 mg/dL (0.70-1.30); EST Glomerular Filtration Rate 108 mL/min (>60); Est Glom Filt Rate - Afr Amer 131 mL/min (>60); Estimated Creatinine Clearance 120.14 ml/min; Globulin 3.8 g/dL (2.2-4.2); Glucose 144 mg/dL (74-106); Lipase 149 U/L (73-393); Potassium 3.3 mmol/L (3.5-5.1); Protein, Total 7.7 g/dL (6.4-8.2); Sodium Level 140 mmol/L (136-145)
[2022-08-25 06:57] LABS: Bacteria 0 SEEN /hpf (None Seen); White Blood Cells 0 SEEN /hpf (0-5)
[2022-08-25 07:07] LABS: Color, Urine Red (Yellow); Glucose, Dipstick Normal (Normal); Leukocyte Esterase-Dipstick Negative /ul (Negative); Nitrite-Dipstick Negative (Negative); Occult Blood-Urine 250 /ul (Negative); Protein-Dipstick 500 mg/dl (Negative); Specific Gravity, Urine 1.025 (1.002-1.030); Urine Clarity Turbid (Clear); Urine Urobilinogen 4 mg/dl (Normal); Urine pH 6.5 (5.0 - 8.0)
[2022-08-25 07:09] LABS: Urine Bilirubin Dipstick 3 mg/dL (Negative)
[2022-08-25 07:11] LABS: Ketone-Dipstick 150 mg/dl (Negative)
[2022-08-25 07:12] LABS: Red Blood Cells-Urine > 100 SEEN /hpf (0-5); Squamous Epithelial Cells - UA 0-5 SEEN /hpf (0-5)
[2022-08-25 07:13] LABS: Hyaline Cast 0-5 SEEN /lpf (0-5); Mucous, Urine 4+ /hpf (<or=2+)
[2022-08-25 07:58] VITALS: BP 124/77; PULSE 62; RESP 15; O2SAT 98
== END 2022-08-25 08:11 | disposition home or self-care (01) ==
PROVIDERS: Emergency Provider Emergency Medicine; Visit Provider Emergency Medicine
DX: N13.2 Hydronephrosis with renal and ureteral calculous obstruction (principal); E66.9 Obesity, unspecified; Z87.891 Personal history of nicotine dependence
CPT/HCPCS: 74176; 80053; 81001; 83690; 85025; 96361; 96374; 96375; 96376; 99284; J7030; A4216; J2405

== ENCOUNTER 2022-08-27 16:25 | Emergency (ER) | payer MEDICAID, SELFPAY ==
[2022-08-27 16:26] VITALS: BP 143/88; PULSE 77; RESP 18; TEMP 36.6; O2SAT 97; BMI 48.7
[2022-08-27 16:52] LABS: Color, Urine Yellow (Yellow); Glucose, Dipstick Normal (Normal); Leukocyte Esterase-Dipstick 25 /ul (Negative); Nitrite-Dipstick Negative (Negative); Occult Blood-Urine 250 /ul (Negative); Protein-Dipstick 30 mg/dl (Negative); Urine Clarity Cloudy (Clear); Urine Urobilinogen 4 mg/dl (Normal)
[2022-08-27 16:57] LABS: Urine Bilirubin Dipstick 3 mg/dL (Negative)
[2022-08-27 16:58] LABS: Ketone-Dipstick 150 mg/dl (Negative)
[2022-08-27 17:02] LABS: Bacteria RARE /hpf (None Seen); Mucous, Urine 1+ /hpf (<or=2+); Red Blood Cells-Urine > 100 SEEN /hpf (0-5)
[2022-08-27 17:03] LABS: Squamous Epithelial Cells - UA 0-5 SEEN /hpf (0-5); White Blood Cells 0-5 SEEN /hpf (0-5)
[2022-08-27] MEDS: HYDROmorphone 1 MG/ML Syringe SC (18:43)
--- NOTE | 2022-08-27 19:13 | CT_ITS ---
STUDY: CTA CHEST REASON FOR EXAM: Male, 37 years old. PE RADIATION DOSAGE (If Supplied By Facility): CTDIvol = ( 20.58 ) mGy, DLP = ( 1148.57 ) mGycm TECHNIQUE: The examination was performed with the intravenous administration of IV 100mL Isovue-370. Post-processing of the angiographic images was performed, with multiplanar reformation and 3D reconstruction. Individualized dose optimization techniques were used for this CT. COMPARISON: CTA chest December 17, 2019 FINDINGS: Normal enhancement of the main pulmonary artery and right and left pulmonary arteries. There is limited enhancement of the bilateral peripheral pulmonary arteries. There is no demonstrated pulmonary embolism. Normal thoracic aorta and visualized great vessels. There is no demonstrated aortic dissection. Normal heart and pericardium. Normal mediastinum. Normal hilar regions. Normal visualized trachea and bronchi. The lungs are well expanded. Normal pulmonary parenchyma. Normal pleura. Normal chest wall structures. Normal osseous structures. Normal visualized upper abdomen. CT/CTA Chest W/WO Contrast IMPRESSION: Peripheral pulmonary emboli cannot be excluded due to inadequate opacification otherwise No acute disease. Electronically Signed: Kenroy Hauser MD at 20:35 EST ,
[2022-08-27 19:23] LABS: Absolute Lymphocyte Count 1.59 X10^3/uL (0.83-4.51); Absolute Neutrophil Count 3.4 X10^3/uL (2.0-7.7); Basophil# 0.03 X10^3/uL; Basophil% 0.5 % (0-1); Eosinophil# 0.13 X10^3/uL; Eosinophils% 2.2 % (0-5); Hematocrit 48.2 % (40-54); Hemoglobin 16.2 g/dL (13.0-16.5); Lymphocyte # 1.59 X10^3/ul (0.83-4.51); Lymphocyte % 26.6 % (19-41); Mean Corp Hgb Conc 33.6 g/dL (32-36); Mean Corpuscular Hgb 27.9 pg (27.0-32.0); Mean Corpuscular Volume 83.1 fL (80-94); Mean Platelet Vol. 12.8 fl (6.2-12.0); Monocyte# 0.81 X10^3/uL; Monocyte% 13.5 % (0-10); NRBC Flagged by Analyzer 0 % (0-5); Neutrophil % 56.9 % (47-70); Platelet Count 193 K/mm3 (150-450); RBC Distribution Width CV 14.2 % (11.6-14.6)
--- NOTE | 2022-08-27 19:33 | EX.ED.DYSGE1 ---
HPI History of Present Illness Chief Complaint: Flank Pain Narrative Narrative: Patient presents with left-sided back pain. He is being treated for a 1 mm kidney stone, he was seen 2 days ago and has seen urology since then. His right-sided flank pain improved however he tells me he did spend 1 or 2 nights barely sleeping he was twisting turning he was on his knees and doing a lot of movements which she normally does not do. He also has a slight pleuritic component. He had recent surgery for gastric sleeve. He has no chest pain. He has no dyspnea. He has no cough. He has no abdominal pain [facility] Medical History Back pain Home Medications oxycodone 5 mg tablet 15 mg PO TID 02/07/18 [History Last Taken 08/20/18] omeprazole 20 mg capsule,delayed release 20 mg PO DAILY 08/27/22 [History Last Taken Unknown] Allergy/AdvReac Type Severity Reaction Status Date / Time fentanyl AdvReac Rash Verified 08/27/22 16:25 hydrocodone [From [place]] AdvReac Rash Verified 08/27/22 16:25 Surgical History S/P gastric sleeve procedure Social History Smoking Status: Former smoker ROS ROS ED ROS Narrative Past medical history: Reviewed Medications: Reviewed Social history: Noncontributory Review of systems: All systems negative except as indicated General: No fever Eyes: No visual changes ENT: No upper airway congestion, normal voice Neck: No neck pain Cardiovascular: No chest pain Back: Left-sided back pain in the low thoracic and upper flank region Respiratory: No shortness of breath or cough Gastrointestinal: No abdominal pain, nausea vomiting or diarrhea. Right flank pain is significantly improved Genitourinary: No dysuria Musculoskeletal: Denies myalgias no difficulty with ambulation Skin: No rash Neurological: No memory loss, confusion or any focal weakness Psych: No recent behavioral changes Hematologic: No easy bleeding or easy bruising EXAM Physical Exam Narrative Exam Narrative: Physical exam General: Patient is relatively comfortable as I walk into the room Head: Normocephalic, Atraumatic Eyes: Conjunctiva not pale ENT: Moist mucous membranes Neck: Supple, Nontender, No lymphadenopathy Cardiovascular: Regular rate, Regular rhythm Respiratory: No distress, CTA bilaterally Abdomen: Soft, Nontender, Nondistended Back: Tenderness on the left is somewhat above the CVA region more in the thoracic region. He does have some slight right-sided CVA tenderness but he tells me it is significantly improved. No rash in those regions. Extremities: Nontender, No edema Skin: Normal color, No rash Neurological: Alert, Normal Strength, Normal Sensation Psychological: Normal affect Const Vital Signs: 08/27/22 16:26 Temperature 97.8 F Temperature Source Temporal Pulse Rate 77 Respiratory Rate 18 Blood Pressure 143/88 H Blood Pressure Mean 106 Pulse Ox 97 Oxygen Delivery Method Room Air [facility] Lab Data Labs: Laboratory Results - last 24 hr 08/27/22 08/27/22 08/27/22 16:34 17:15 17:15 WBC 6.0 RBC 5.80 Hgb 16.2 Hct 48.2 MCV 83.1 MCH 27.9 MCHC 33.6 RDW Std Deviation 42.0 RDW Coeff of Jessica 14.2 Plt Count 193 MPV 12.8 H Immature Gran % (Auto) 0.300 Neut % (Auto) 56.9 Lymph % (Auto) 26.6 [place] % (Auto) 13.5 H Eos % (Auto) 2.2 Baso % (Auto) 0.5 Absolute Neuts (auto) 3.4 Absolute Lymphs (auto) 1.59 Nucleated RBC % 0 Sodium 141 Potassium 3.1 L Chloride 103 Carbon Dioxide 25.0 Anion Gap 13 BUN 10 Creatinine 0.74 Estim Creat Clear Calc 138.00 Est GFR (MDRD) Af Amer 154 Est GFR (MDRD) Non-Af 128 BUN/Creatinine Ratio 13.6 Glucose 123 H Calcium 9.5 Total Bilirubin 1.70 H AST 38 H ALT 108 H Alkaline Phosphatase 68 Total Protein 7.3 Albumin 3.7 Globulin 3.6 Albumin/Globulin Ratio 1.0 Urine Color Yellow Urine Clarity Cloudy Urine pH 6.0 Ur Specific [place] 1.020 Urine Protein 30 H Urine Glucose (UA) Normal Urine Ketones 150 A* Urine Occult Blood 250 H Urine Nitrite Negative Urine Bilirubin 3 H Urine Urobilinogen 4 H Ur Leukocyte Esterase 25 H Urine RBC > 100 SEEN Urine WBC 0-5 SEEN Ur Squamous Epith Cells 0-5 SEEN Urine Bacteria RARE Urine Mucus 1+ Radiography Diagnostic Testing: Clinical Impression(s) from Imaging Studies Chest CTA 08/27/22 19:13 IMPRESSION: Peripheral pulmonary emboli cannot be excluded due to inadequate opacification otherwise No acute disease. Electronically Signed: Kenroy Hauser MD at 20:35 EST Reading Location ID and State: [address] [place] [address] , Service support , EKG Initial EKG: Comments: Sinus rhythm with a rate of 65. Normal AL and QTc intervals. No ischemic changes. Grossly normal EKG. Interpreted by emergency Dr. Treatment and Re-Evaluation Narrative: Patient's work-up is unremarkable. His vitals are normal. He likely sustained a rib strain from his movement. He tells me that ever since his gastric sleeve procedure he has not been feeling well. He would like to be admitted for a few days to figure out what is going on. I told him that is not a reasonable request, he can follow-up with his surgeon but at this time his work-up can be done outpatient. He has pain medications he has nausea medications and I believe he can be safely discharged Discharge Plan Triage Chief Complaint: Flank Pain ED Provider: Garrick Dunbar Dx/Rx/DC Orders Clinical Impression: Acute flank pain, Back pain Instructions: ED Back Care Tips, ED Kidney Stone, Passed Prescriptions: No Action oxycodone 5 MG tablet 15 mg PO TID omeprazole 20 mg capsule,delayed release(DR/EC) 20 mg PO DAILY Label Comments: Take 1 capsule by mouth once daily. Primary Care Provider: Care Physician,No Primary Referrals: Care Physician,No Primary [Primary Care Provider] - 3-5 Days Disposition Disposition: Home, Self Care
[2022-08-27 19:35] LABS: AST(SGOT) 38 U/L (15-37); Alanine Aminotransfer ALT/SGPT 108 U/L (16-61); Albumin, Serum 3.7 g/dL (3.2-5.0); Alkaline Phosphatase 68 U/L (45-117); Anion Gap 13 (5-15); BUN 10 mg/dL (7-18); BUN/Creat Ratio 13.6 RATIO (10-20); Calcium,Total 9.5 mg/dL (8.5-10.1); Chloride 103 mmol/L (98-107); Creatinine, Serum 0.74 mg/dL (0.70-1.30); EST Glomerular Filtration Rate 128 mL/min (>60); Est Glom Filt Rate - Afr Amer 154 mL/min (>60); Globulin 3.6 g/dL (2.2-4.2); Glucose 123 mg/dL (74-106); Potassium 3.1 mmol/L (3.5-5.1); Protein, Total 7.3 g/dL (6.4-8.2); Sodium Level 141 mmol/L (136-145)
[2022-08-27] MEDS: Potassium Chloride Oral Tablet 20 MEQ 60 MEQ PO (19:49)
[2022-08-27] MEDS: Ketorolac 15 MG/ML Vial IV (19:49)
[2022-08-27 20:45] VITALS: BP 134/78; PULSE 78; RESP 16; TEMP 36.6; O2SAT 99
== END 2022-08-27 20:56 | disposition home or self-care (01) ==
PROVIDERS: Emergency Provider Emergency Medicine; Visit Provider Emergency Medicine
DX: R10.9 Unspecified abdominal pain (principal); M54.9 Dorsalgia, unspecified; N20.0 Calculus of kidney; Z87.891 Personal history of nicotine dependence
CPT/HCPCS: 71275; 80053; 81001; 85025; 93005; 96372; 96374; 99283; Q9967; A4216

== ENCOUNTER 2022-09-01 23:01 | Emergency (ER) | payer MEDICAID, SELFPAY ==
[2022-09-01 23:03] VITALS: BP 184/113; PULSE 81; RESP 16; TEMP 36; BMI 48.9
[2022-09-01 23:05] VITALS: BP 184/113; PULSE 81; RESP 18; TEMP 36
--- NOTE | 2022-09-01 23:42 | CT_ITS ---
INDICATION: Kidney Stone EXAMINATION: CT ABDOMEN AND PELVIS WITHOUT CONTRAST - CT Abdomen And Pelvis W/O Contrast Injection TECHNIQUE: Helically acquired images were obtained of the abdomen and pelvis without oral or IV contrast. A radiation dose optimization technique was used for this scan. IV Contrast dosage and agent: None. Oral contrast: None. COMPARISON: August 25, 2022. FINDINGS: LOWER CHEST: Lung bases are clear. No cardiomegaly or pericardial effusion. LIVER: Hepatic steatosis and hepatomegaly. Mild pericholecystic sparing.. No focal mass. GALLBLADDER AND BILIARY TREE: Gallbladder distended with suggestion of dependent layering sludge, without surrounding inflammation.. No intra- or extrahepatic biliary ductal dilation. PANCREAS: No focal cystic or solid mass. SPLEEN: Homogeneous splenomegaly. ADRENAL GLANDS: No nodules. KIDNEYS AND URETERS: Minimal left hydronephrosis and hydroureter with mild peripelvic inflammatory stranding. 2 mm ureterovesical junction stone just within the bladder, axial image 160 and coronal image 93. No other nephrolithiasis. Unremarkable right kidney and ureter. Otherwise unremarkable decompressed bladder. PERITONEUM: No ascites or free air. No other fluid collection. BOWEL: Prior sleeve gastrectomy. No small bowel obstruction or focal wall thickening. Normal appendix. Colon is decompressed, limiting evaluation of colonic wall. No gross pericolonic inflammation. LYMPH NODES: No enlarged mesenteric or retroperitoneal lymph nodes. VESSELS: Aorta is non-dilated. ABDOMINAL WALL: No discrete abdominal or pelvic wall hernia. BONES: No lytic or blastic abnormality. CT/Abdomen/Pelvis without Cont IMPRESSION: 2 mm left ureteral vesicle junction stone with mild hydronephrosis and peripelvic inflammation. Hepatic steatosis with mild hepatosplenomegaly. Correlate with hepatic function for evidence of cirrhosis. Distended gallbladder with suggestion of layering sludge. No surrounding inflammation is appreciated. Ultrasound could further evaluate as clinically indicated. Electronically Signed: Faustino Dey MD at 0:36 EST ,
--- NOTE | 2022-09-01 23:43 | EDS_ITS ---
HPI History of Present Illness Chief Complaint: Flank Pain Informant: patient Narrative Narrative: Worsening left flank pain today. Intermittent symptoms for last 5 days. Seen 7 days ago with kidney stone right-sided 1 mm distal ureter. He follow-up with urology through [facility] reported that it has passed. He was seen 2 days later for upper left flank lower thoracic pain. He had a gastric sleeve placed July 29. He had a CTA chest that was negative. He states symptoms would go away however return more in the left side of the abdomen this evening. He is on oxycodone's for back pain has taken 2 doses with second dose not helping symptoms. Nausea and vomiting with yellow mucus. Nonbloody. Denies urinary symptoms. 7 days ago was his first kidney stone. Reports this feels worse than his Prior similar symptoms: Yes PFSH PFSH Medical History Back pain Home Medications oxycodone 5 mg tablet 15 mg PO TID 02/07/18 [History Last Taken 08/20/18] omeprazole 20 mg capsule,delayed release 20 mg PO DAILY 08/27/22 [History Last Taken Unknown] cephalexin 500 mg capsule 500 mg PO Q6 #20 caps 09/02/22 [Rx Last Taken Unknown] Allergy/AdvReac Type Severity Reaction Status Date / Time fentanyl AdvReac Rash Verified 08/27/22 16:25 hydrocodone [From [place]] AdvReac Rash Verified 08/27/22 16:25 Surgical History S/P gastric sleeve procedure Social History Smoking Status: Former smoker ROS ROS ED Constitutional Constitutional ED: Denies chills, fever(s) or sweats Eyes Eyes: Denies change in vision ENT ENT ED: Denies dysphagia or sore throat Cardiovascular Cardiovascular: Denies chest pain, leg edema, palpitations or racing heartbeat Respiratory/Chest Respiratory/Chest: Denies cough, dyspnea or dyspnea on exertion Gastrointestinal Gastrointestinal: Reports nausea and vomiting; Denies abdominal pain or diarrhea Genitourinary Genitourinary ED: Denies dysuria, hematuria or urinary frequency Musculoskeletal Musculoskeletal: Reports back pain; Denies extremity pain or neck pain Integumentary Denies rash or wounds Neurologic Neurologic: Denies headache(s), paresthesias or weakness EXAM Physical Exam Const Vital Signs: 09/01/22 23:03 09/01/22 23:05 09/02/22 04:19 Temperature 96.8 F L 96.8 F L Temperature Source Temporal Temporal Pulse Rate 81 81 Respiratory Rate 16 18 16 Blood Pressure 184/113 H 184/113 H 141/90 H Blood Pressure Mean 136 136 107 09/02/22 04:19 Temperature Temperature Source Pulse Rate Respiratory Rate 16 Blood Pressure 141/90 H Blood Pressure Mean Positive well nourished and well developed Constitutional Narrative: Uncomfortable, nontoxic General Appearance ED: well developed HEENT Reports moist mucous membranes normocephalic and atraumatic Eyes PERRL, EOMs intact bilaterally and conjunctivae normal General Eye ED: Yes normal appearance of both eyes Neck no lymphadenopathy and supple General: Negative for tenderness Chest Wall Chest: Negative for tenderness Resp normal respiratory effort and normal air movement Effort and Inspection: symmetric chest movement; Negative for respiratory distress Cardio regular rate, regular rhythm and no murmurs Peripheral Pulses: pulses 2+ throughout GI normal to inspection, nondistended, normoactive bowel sounds Palpation: Negative for guarding or rebound tenderness present Back/Spine no CVA tenderness and no thoracic nor lumbar tenderness Back/Spine Narrative: No rash left flank. Tender left abdomen mid axillary line. Extremity normal to inspection General Extremety ED: Negative for edema or tenderness General Extremity: Negative for edema Neuro oriented x3 and no sensory deficits noted Sensorium / Orientation: awake and alert Skin no rashes or lesions noted and no wounds MDM MDM MDM Narrative Medical decision making narrative: Patient uncomfortable during evaluation. Recent right-sided ureteral stone. Now left-sided symptoms. IV established, was given fluids Dilaudid Zofran. Avoiding NSAIDs due to his gastric stapling procedure. Labs White count stable creatinine 0.87. Potassium 3.0. CT scan reviewed by myself and per radiology 2 mm left UVJ stone. Required additional IV pain medications urine was obtained noting leukocytes and WBCs. He is afebrile with a normal white count. States urine urgency however no dysuria. With obstructive process culture sent he was given dose of Rocephin. Reevaluation improving symptoms. He states he has Zofran at home. He is on oxycodone 15 mg 3 times daily. Prescription for Keflex to take. Given oral potassium in the ED. He follows [facility] urology. He will call them tomorrow. Return precautions discussed. CT scan did note possible gallbladder distention with sludge. He is nontender in the right upper quadrant. All questions were answered. Lab Data Attestation: I reviewed the patient's lab results. Labs: Laboratory Results - last 24 hr 09/02/22 09/02/22 09/02/22 00:08 00:08 01:50 WBC 9.1 RBC 5.83 Hgb 16.6 H Hct 47.8 MCV 82.0 MCH 28.5 MCHC 34.7 RDW Std Deviation 39.9 RDW Coeff of Jessica 13.7 Plt Count 178 MPV 11.7 Immature Gran % (Auto) 0.800 Neut % (Auto) 68.2 Lymph % (Auto) 16.0 L [place] % (Auto) 13.1 H Eos % (Auto) 1.4 Baso % (Auto) 0.5 Absolute Neuts (auto) 6.2 Absolute Lymphs (auto) 1.46 Nucleated RBC % 0 Sodium 138 Potassium 3.0 L Chloride 101 Carbon Dioxide 23.0 Anion Gap 14 BUN 15 Creatinine 0.87 Estim Creat Clear Calc 117.38 Est GFR (MDRD) Af Amer 127 Est GFR (MDRD) Non-Af 105 BUN/Creatinine Ratio 17.2 Glucose 159 H Calcium 9.3 Urine Color Yellow Urine Clarity Clear Urine pH 5.0 Ur Specific [place] 1.020 Urine Protein 30 H Urine Glucose (UA) Normal Urine Ketones 150 A* Urine Occult Blood 250 H Urine Nitrite Negative Urine Bilirubin 1 H Urine Urobilinogen 4 H Ur Leukocyte Esterase 25 H Urine RBC 25-50 SEEN Urine WBC 10-25 SEEN Ur Squamous Epith Cells 0-5 SEEN Urine Bacteria 1+ Urine Mucus 1+ Radiography Diagnostic Testing: Clinical Impression(s) from Imaging Studies Abdomen/Pelvis CT 09/01/22 23:42 IMPRESSION: 2 mm left ureteral vesicle junction stone with mild hydronephrosis and peripelvic inflammation. Hepatic steatosis with mild hepatosplenomegaly. Correlate with hepatic function for evidence of cirrhosis. Distended gallbladder with suggestion of layering sludge. No surrounding inflammation is appreciated. Ultrasound could further evaluate as clinically indicated. Electronically Signed: Faustino Dey MD at 0:36 EST , Discharge Plan Triage Chief Complaint: Flank Pain ED Provider: Chace Phipps Dx/Rx/DC Orders Clinical Impression: Acute flank pain, Urolithiasis, Acute UTI, Hypokalemia Instructions: Urinary Tract Infections in Men, ED Hematuria, ED Hypokalemia, ED Kidney Stone w/ Colic Prescriptions: New cephalexin [cephalexin] 500 mg capsule 500 mg PO Q6 Qty: 20 0RF No Action oxycodone 5 MG tablet 15 mg PO TID omeprazole 20 mg capsule,delayed release(DR/EC) 20 mg PO DAILY Label Comments: Take 1 capsule by mouth once daily. Primary Care Provider: Care Physician,No Primary Referrals: Care Physician,No Primary [Primary Care Provider] - Activity Restrictions/Additional Instructions: CT scan notes a 2 mm stone in your left UVJ. Previous right stone has passed. Urine noted signs of infection. Continue your Zofran as needed, continue your pain medications as needed. Take antibiotic as prescribed. Call your urologist tomorrow for follow-up. Return for worsening symptoms. Disposition Disposition: Home, Self Care Discharge Date/Time: 09/02/22 04:21
[2022-09-02] MEDS: Ondansetron 4 MG/2 ML Vial IV (00:15)
[2022-09-02] MEDS: 0.9% Normal Saline 1,000 ML 250 ML IV ×2 (00:15→04:16)
[2022-09-02] MEDS: HYDROmorphone 1 MG/ML Syringe IV ×2 (00:15→03:05)
[2022-09-02 00:16] LABS: Absolute Lymphocyte Count 1.46 X10^3/uL (0.83-4.51); Absolute Neutrophil Count 6.2 X10^3/uL (2.0-7.7); Basophil# 0.05 X10^3/uL; Basophil% 0.5 % (0-1); Eosinophil# 0.13 X10^3/uL; Eosinophils% 1.4 % (0-5); Hematocrit 47.8 % (40-54); Hemoglobin 16.6 g/dL (13.0-16.5); Lymphocyte # 1.46 X10^3/ul (0.83-4.51); Mean Corp Hgb Conc 34.7 g/dL (32-36); Mean Corpuscular Hgb 28.5 pg (27.0-32.0); Mean Platelet Vol. 11.7 fl (6.2-12.0); Monocyte% 13.1 % (0-10); NRBC Flagged by Analyzer 0 % (0-5); Neutrophil # 6.23 X10^3/uL (2.7-7.7); Neutrophil % 68.2 % (47-70); Platelet Count 178 K/mm3 (150-450); RBC Distribution Width CV 13.7 % (11.6-14.6); RBC Distribution Width SD 39.9 fl (35.1-43.9); Red Blood Count 5.83 M/mm3 (4.6-6.2); White Blood Count 9.1 K/mm3 (4.4-11.0)
[2022-09-02 00:29] LABS: Anion Gap 14 (5-15); BUN 15 mg/dL (7-18); BUN/Creat Ratio 17.2 RATIO (10-20); Calcium,Total 9.3 mg/dL (8.5-10.1); Chloride 101 mmol/L (98-107); Creatinine, Serum 0.87 mg/dL (0.70-1.30); EST Glomerular Filtration Rate 105 mL/min (>60); Est Glom Filt Rate - Afr Amer 127 mL/min (>60); Estimated Creatinine Clearance 117.38 ml/min; Glucose 159 mg/dL (74-106); Sodium Level 138 mmol/L (136-145)
[2022-09-02 01:54] LABS: Color, Urine Yellow (Yellow); Glucose, Dipstick Normal (Normal); Leukocyte Esterase-Dipstick 25 /ul (Negative); Nitrite-Dipstick Negative (Negative); Occult Blood-Urine 250 /ul (Negative); Protein-Dipstick 30 mg/dl (Negative); Urine Clarity Clear (Clear); Urine Urobilinogen 4 mg/dl (Normal)
[2022-09-02 02:09] LABS: Urine Bilirubin Dipstick 1 mg/dL (Negative)
[2022-09-02 02:10] LABS: Ketone-Dipstick 150 mg/dl (Negative)
[2022-09-02 02:12] LABS: Bacteria 1+ /hpf (None Seen); Mucous, Urine 1+ /hpf (<or=2+); Red Blood Cells-Urine 25-50 SEEN /hpf (0-5); Squamous Epithelial Cells - UA 0-5 SEEN /hpf (0-5); White Blood Cells 10-25 SEEN /hpf (0-5)
[2022-09-02] MEDS: Ceftriaxone 1 GM/50 ML BAG IV (03:05)
[2022-09-02] MEDS: Potassium Chloride Oral Tablet 20 MEQ 40 MEQ PO (04:09)
[2022-09-02 04:19] VITALS: BP 141/90; RESP 16
== END 2022-09-02 04:21 | disposition home or self-care (01) ==
PROVIDERS: Emergency Provider Emergency Medicine; Visit Provider Emergency Medicine
DX: N39.0 Urinary tract infection, site not specified (principal); R10.9 Unspecified abdominal pain; R11.2 Nausea with vomiting, unspecified; Z87.891 Personal history of nicotine dependence; E87.6 Hypokalemia; N20.9 Urinary calculus, unspecified
CPT/HCPCS: 74176; 80048; 81001; 85025; 87086; 96361; 96365; 96375; 96376; 99283; J7030; J7050; A4216; J2405

== ENCOUNTER 2022-09-17 17:37 | Emergency (ER) | payer MEDICAID, SELFPAY ==
[2022-09-17 17:38] VITALS: BP 154/94; PULSE 81; RESP 16; TEMP 35.3; O2SAT 94; BMI 47.9
--- NOTE | 2022-09-17 19:21 | EDS_ITS ---
HPI History of Present Illness Chief Complaint: General Illness Informant: patient Onset/Context/Timing Onset: Month(s) (1-2) Context: - (since gastric sleeve procedure) Timing: Continuous Quality: nonbilious emesis Current Severity: Moderate Maximum Severity: Moderate Worsened by: eating Relieved by: vomiting Associated Symptoms Associated Symptoms: abd discomfort, coughing up small amts of phlegm Narrative Narrative: Patient presents stating that he is feeling dehydrated and requesting IV fluids. 2 months ago he had a gastric sleeve procedure done for obesity, since then he has had significant difficulty eating and drinking. He is using no alcohol and using no NSAIDs. He has talked with the surgeon, at [facility], he has an appointment tomorrow for testing to ensure no leak. He has been at the local [facility] infusion center for fluids a couple times since his surgery, and states today he could not get in and was advised to come here. He denies any new symptoms. He states in the morning when he drinks water, he feels full very quickly, and it is difficult to take in good amounts and he is feeling dehydrated. He is vomiting from time to time, he states he has phlegm that he feels like he needs to cough out from time to time, he has seen minute amounts of blood in it from time to time, but no significant bleeding, he does not feel dyspneic, febrile, or like he has a respiratory illness. [facility] Medical History Back pain Home Medications oxycodone 5 mg tablet 15 mg PO TID 02/07/18 [History Last Taken 08/20/18] omeprazole 20 mg capsule,delayed release 20 mg PO DAILY 08/27/22 [History Last Taken Unknown] cephalexin 500 mg capsule 500 mg PO Q6 #20 caps 09/02/22 [Rx Last Taken Unknown] Allergy/AdvReac Type Severity Reaction Status Date / Time fentanyl AdvReac Rash Verified 09/17/22 17:38 hydrocodone [From [place]] AdvReac Rash Verified 09/17/22 17:38 Surgical History S/P gastric sleeve procedure Social History Smoking Status: Former smoker ROS ROS ED Constitutional Constitutional ED: Denies chills or fever(s) Eyes Eyes: Denies change in vision or diplopia ENT ENT ED: Denies rhinorrhea or sore throat Cardiovascular Cardiovascular: Denies chest pain or palpitations Respiratory/Chest Respiratory/Chest: Reports cough; Denies dyspnea Gastrointestinal Gastrointestinal: Reports abdominal pain, nausea and vomiting; Denies diarrhea or melena Genitourinary Genitourinary ED: Denies dysuria, hematuria or urinary frequency Musculoskeletal Musculoskeletal: Denies arthralgias or neck pain Integumentary Denies abscess or rash Neurologic Neurologic: Denies headache(s), paresthesias or weakness Psychiatric Psychiatric: Denies anxiety or suicidal thoughts EXAM Physical Exam Const Vital Signs: 09/17/22 17:38 09/17/22 19:39 Temperature 95.6 F L Temperature Source Temporal Pulse Rate 81 Respiratory Rate 16 Respiratory Effort Normal Respiratory Pattern Normal Blood Pressure 154/94 H Blood Pressure Mean 114 Pulse Ox 94 Oxygen Delivery Method Room Air Positive well nourished, well developed and obese General Appearance ED: well developed and NAD Nutritional Appearance: obese HEENT Reports moist mucous membranes normocephalic and atraumatic Eyes PERRL and EOMs intact bilaterally Neck full ROM and supple Resp normal respiratory effort and clear to auscultation bilaterally Cardio regular rate, regular rhythm and no murmurs GI non-distended GI Narrative: Mild tenderness without guarding or rebound epigastrium only. No other areas of tenderness. Well-healed surgical incisions laparoscopic. Auscultation: normoactive bowel sounds Palpation: soft Back/Spine no CVA tenderness General Back: other FROM Extremity normal to inspection General Extremety ED: Negative for edema, pulses abnormal or tenderness General Extremity: Negative for edema or pulses abnormal Neuro oriented x3, CN's II-XII intact bilaterally and no sensory deficits noted Sensorium / Orientation: awake and alert Motor Exam: strength 5/5 throughout Psych mental status grossly normal Skin no rashes or lesions noted and no wounds MDM MDM MDM Narrative Medical decision making narrative: Patient was given a liter of IV normal saline while we checked electrolytes and blood counts, his potassium is low 3.2 and given the GI difficulty he has been having, we replaced some of this with an IV dose of potassium chloride 10 mill equivalents. He was given some nausea medication as well. I think he will probably feel better with potassium back up. We will discharge him to follow-up with his surgeon tomorrow as scheduled. Lab Data Attestation: I reviewed the patient's lab results. Labs: Laboratory Results - last 24 hr 09/17/22 09/17/22 19:31 19:31 WBC 8.2 RBC 5.97 Hgb 17.0 H Hct 49.4 MCV 82.7 MCH 28.5 MCHC 34.4 RDW Std Deviation 42.5 RDW Coeff of Jessica 14.3 Plt Count 201 MPV 11.6 Immature Gran % (Auto) 0.700 Neut % (Auto) 62.8 Lymph % (Auto) 21.6 [place] % (Auto) 12.6 H Eos % (Auto) 1.7 Baso % (Auto) 0.6 Absolute Neuts (auto) 5.1 Absolute Lymphs (auto) 1.76 Nucleated RBC % 0 Sodium 138 Potassium 3.2 L Chloride 99 Carbon Dioxide 25.0 Anion Gap 14 BUN 10 Creatinine 0.76 Estim Creat Clear Calc 130.00 Est GFR (MDRD) Af Amer 150 Est GFR (MDRD) Non-Af 124 BUN/Creatinine Ratio 13.2 Glucose 116 H Calcium 9.2 Discharge Plan Triage Chief Complaint: General Illness ED Provider: Herbert Ramirez Dx/Rx/DC Orders Clinical Impression: Mild dehydration, Vomiting, Acute upper abdominal pain, Hypokalemia due to inadequate potassium intake Instructions: Hypokalemia Dc Prescriptions: No Action oxycodone 5 MG tablet 15 mg PO TID omeprazole 20 mg capsule,delayed release(DR/EC) 20 mg PO DAILY Label Comments: Take 1 capsule by mouth once daily. cephalexin [cephalexin] 500 mg capsule 500 mg PO Q6 Qty: 20 0RF Primary Care Provider: Care Physician,No Primary Referrals: Doctor,Your [Non-Staff] - Keep [facility] appointment (tomorrow) Disposition Disposition: Home, Self Care
[2022-09-17 19:35] LABS: Absolute Lymphocyte Count 1.76 X10^3/uL (0.83-4.51); Absolute Neutrophil Count 5.1 X10^3/uL (2.0-7.7); Basophil# 0.05 X10^3/uL; Basophil% 0.6 % (0-1); Eosinophil# 0.14 X10^3/uL; Eosinophils% 1.7 % (0-5); Hematocrit 49.4 % (40-54); Lymphocyte # 1.76 X10^3/ul (0.83-4.51); Lymphocyte % 21.6 % (19-41); Mean Corp Hgb Conc 34.4 g/dL (32-36); Mean Corpuscular Hgb 28.5 pg (27.0-32.0); Mean Corpuscular Volume 82.7 fL (80-94); Mean Platelet Vol. 11.6 fl (6.2-12.0); Monocyte# 1.03 X10^3/uL; Monocyte% 12.6 % (0-10); NRBC Flagged by Analyzer 0 % (0-5); Neutrophil # 5.12 X10^3/uL (2.7-7.7); Neutrophil % 62.8 % (47-70); Platelet Count 201 K/mm3 (150-450); RBC Distribution Width CV 14.3 % (11.6-14.6); RBC Distribution Width SD 42.5 fl (35.1-43.9); Red Blood Count 5.97 M/mm3 (4.6-6.2); White Blood Count 8.2 K/mm3 (4.4-11.0)
[2022-09-17] MEDS: 0.9% Normal Saline 1,000 ML 999 ML IV (19:35)
[2022-09-17] MEDS: Ondansetron 4 MG/2 ML Vial IV (19:35)
[2022-09-17 19:55] LABS: Anion Gap 14 (5-15); BUN 10 mg/dL (7-18); BUN/Creat Ratio 13.2 RATIO (10-20); Calcium,Total 9.2 mg/dL (8.5-10.1); Chloride 99 mmol/L (98-107); Creatinine, Serum 0.76 mg/dL (0.70-1.30); EST Glomerular Filtration Rate 124 mL/min (>60); Est Glom Filt Rate - Afr Amer 150 mL/min (>60); Glucose 116 mg/dL (74-106); Potassium 3.2 mmol/L (3.5-5.1); Sodium Level 138 mmol/L (136-145)
[2022-09-17 20:00] VITALS: BP 154/94; PULSE 81; RESP 16; TEMP 35.3; O2SAT 94
[2022-09-17 21:00] VITALS: BP 126/81; PULSE 76; RESP 18; TEMP 36.8; O2SAT 98
[2022-09-17] MEDS: Potassium Chloride 10mEq/100mL 10 MEQ/100 ML IV.SOLN. 100 MEQ IV BOLUS (21:31)
== END 2022-09-17 22:33 | disposition home or self-care (01) ==
PROVIDERS: Emergency Provider Emergency Medicine; Visit Provider Emergency Medicine
DX: E86.0 Dehydration (principal); R11.2 Nausea with vomiting, unspecified; R10.10 Upper abdominal pain, unspecified; E87.6 Hypokalemia; E66.9 Obesity, unspecified; Z79.899 Other long term (current) drug therapy; Z87.891 Personal history of nicotine dependence
CPT/HCPCS: 80048; 85025; 96361; 96365; 96375; 99283; J7030; J7040; A4216; J2405

== ENCOUNTER 2022-09-19 21:26 | Emergency (ER) | payer MEDICAID, SELFPAY ==
[2022-09-19 21:26] VITALS: BP 165/98; PULSE 93; RESP 18; TEMP 35.7; BMI 46.5
[2022-09-19] MEDS: HYDROmorphone 1 MG/ML Syringe IV (22:10)
[2022-09-19] MEDS: Ondansetron 4 MG/2 ML Vial IV (22:10)
--- NOTE | 2022-09-19 22:11 | EDS_ITS ---
HPI History of Present Illness Chief Complaint: Flank Pain Informant: patient Narrative Narrative: 37-year-old male with history of gastric sleeve, multiple small kidney stones and episodes of dehydration presenting with right back pain. Patient states it feels like his prior kidney stones. Denies any radiation. Pain started yesterday but is intensifying. Has had darker urine. Notes a correlation between receiving IV fluids for dehydration and then passing kidney stones 2 to 3 days later. He does follow with urology at [facility]. Has nausea and worsening vomiting. He notes that since his gastric sleeve he is also dealt with a lot of issues with dehydration and acid reflux. Denies any testicular or groin pain. Denies any other abdominal pain. No other complaints at this time. Does have chronic back pain which he takes oxycodone 15 mg for but states this feels different. He did try to take his home oxycodone with no relief. Denies any fever or chills. Chart view shows the patient was seen in our ER 2 days ago. He received IV pot assium, nausea medicine and IV fluids.Patient most recently had a CT of his abdomen pelvis on 09/01 where he was diagnosed with a 2 mm left UVJ stone. 7 days before that he had a 1 mm kidney stone on the left. [facility] Medical History Back pain Home Medications oxycodone 5 mg tablet 15 mg PO TID 02/07/18 [History Last Taken 08/20/18] omeprazole 20 mg capsule,delayed release 20 mg PO DAILY 08/27/22 [History Last Taken Unknown] cephalexin 500 mg capsule 500 mg PO Q6 #20 caps 09/02/22 [Rx Last Taken Unknown] ondansetron 4 mg disintegrating tablet 4 mg PO Q6H PRN nausea and vomiting #20 tabs 09/20/22 [Rx Last Taken Unknown] Allergy/AdvReac Type Severity Reaction Status Date / Time fentanyl AdvReac Rash Verified 09/17/22 17:38 hydrocodone [From [place]] AdvReac Rash Verified 09/17/22 17:38 Surgical History S/P gastric sleeve procedure Social History Smoking Status: Former smoker ROS ROS ED Constitutional Constitutional ED: Denies chills or fever(s) Eyes Eyes: Denies change in vision ENT ENT ED: Denies rhinorrhea Cardiovascular Cardiovascular: Denies chest pain Respiratory/Chest Respiratory/Chest: Denies cough or dyspnea Gastrointestinal Gastrointestinal: Reports nausea and vomiting; Denies abdominal pain, constipation or diarrhea Genitourinary Genitourinary ED: Denies dysuria Musculoskeletal Musculoskeletal: Reports back pain; Denies arthralgias Integumentary Denies rash Neurologic Neurologic: Denies paresthesias or weakness Psychiatric Psychiatric: Denies anxiety Hematologic/Lymphatic Hematologic/Lymphatic: Denies easy bleeding or easy bruising EXAM Physical Exam Const Vital Signs: 09/19/22 21:26 09/19/22 21:26 09/19/22 23:26 Temperature 96.2 F L 96.2 F L Temperature Source Temporal Temporal Pulse Rate 93 93 73 Respiratory Rate 18 18 15 Blood Pressure 165/98 H 165/98 H 98/69 Blood Pressure Mean 120 120 78 Pulse Ox 92 Oxygen Delivery Method Room Air 09/19/22 23:39 Temperature Temperature Source Pulse Rate 73 Respiratory Rate 15 Blood Pressure 128/69 H Blood Pressure Mean Pulse Ox 92 Oxygen Delivery Method Positive well nourished and well developed General Appearance ED: well developed HEENT Reports moist mucous membranes Eyes PERRL and EOMs intact bilaterally Neck supple Chest Wall inspection of chest normal and palpation of chest normal Resp normal respiratory effort and clear to auscultation bilaterally Cardio regular rate, regular rhythm and no murmurs GI normal to inspection, nondistended, normoactive bowel sounds and non-tender Back/Spine no CVA tenderness Back/Spine Narrative: Points to his right CVA region as the area of his pain. No midline tenderness. Extremity normal to inspection Neuro oriented x3 Sensorium / Orientation: alert Motor Exam: Negative for general weakness Psych mental status grossly normal Skin no rashes or lesions noted MDM MDM MDM Narrative Medical decision making narrative: Patient is evaluated for worsening flank pain that started yesterday. He has a history of passing multiple small kidney stones that he has been seen in our ER for the past few months. He said multiple CTs have shown 2 mm and 1 mm kidney stones. His most recent CT was on 07/02. His urinalysis actually shows a small stone in it. I do not think a repeat CT is indicated as he had no large stones on his prior imaging and he has evidence of hematuria and passing a stone currently. Patient does have chronic pain and takes oxycodone 15 mg at [facility]. He is given a total of 2 mg IV Dilaudid for further pain control. He also has of an issue with what sounds like dehydration after his gastric sleeve. Patient is convinced that the IV fluids are causing him to pass kidney stone so he does not want any IV fluids at this time. Patient does have 150 ketones in his urine in addition to 50-100 red blood cells. In addition while his creatinine is normal at 0.98 it is slightly uptrending. I counseled patient that I medically recommend IV fluids to however he still declined. Patient states he will return if he feels that his dehydration is worsening he will continue to try to push fluids at home.Patient's potassium is mildly low at 3.4 but is improved from his prior visit. Patient does have a mild elevation of ALT of 67 however his liver enzymes overall are improved compared to prior visits and he does have a history of fatty liver. Patient courage to follow-up with his urologist as well as pain management and his surgeon. He admits that he has stopped taking his omeprazole and I discussed that could be why he is having some worsening reflux symptoms. Patient will be discharged home. He is given a refill of his Zofran. Counseled to increase his fluid intake as well as his diet with potassium rich foods. Discussed potentially following up with nutrition as well given his gastric sleeve and his eating issues. Lab Data Attestation: I reviewed the patient's lab results. Labs: Laboratory Results - last 24 hr 09/19/22 09/19/22 09/19/22 21:48 22:06 22:06 WBC 10.2 RBC 5.96 Hgb 16.7 H Hct 49.5 MCV 83.1 MCH 28.0 MCHC 33.7 RDW Std Deviation 42.8 RDW Coeff of Jessica 14.6 Plt Count 194 MPV 11.3 Immature Gran % (Auto) 1.200 H Neut % (Auto) 71.5 H Lymph % (Auto) 10.4 L [place] % (Auto) 14.9 H Eos % (Auto) 1.5 Baso % (Auto) 0.5 Absolute Neuts (auto) 7.3 Absolute Lymphs (auto) 1.06 Nucleated RBC % 0 Differential Comment SEE COMMENT Platelet Estimate ADEQUATE RBC Morphology N CHROM Anisocytosis RARE Sodium 137 Potassium 3.4 L Chloride 99 Carbon Dioxide 26.0 Anion Gap 12 BUN 9 Creatinine 0.98 Estim Creat Clear Calc 104.21 Est GFR (MDRD) Af Amer 111 Est GFR (MDRD) Non-Af 92 BUN/Creatinine Ratio 9.2 L Glucose 139 H Calcium 9.1 Total Bilirubin 1.60 H Direct Bilirubin 0.67 H AST 28 ALT 67 H Alkaline Phosphatase 77 Total Creatine Kinase 36 L Total Protein 6.6 Albumin 3.3 Globulin 3.3 Urine Color Dorota Urine Clarity Sl. Cloudy Urine pH 6.0 Ur Specific [place] 1.025 Urine Protein 30 H Urine Glucose (UA) Normal Urine Ketones 150 A* Urine Occult Blood 250 H Urine Nitrite Negative Urine Bilirubin 3 H Urine Urobilinogen 8 H Ur Leukocyte Esterase 25 H Urine RBC 50-100 SEEN Urine WBC 0-5 SEEN Ur Squamous Epith Cells 0-5 SEEN Urine Bacteria RARE Urine Mucus 2+ Discharge Plan Triage Chief Complaint: Flank Pain ED Provider: Nancy Srivastava Dx/Rx/DC Orders Clinical Impression: Acute right flank pain, Kidney calculi, Renal colic on right side, Dehydration Instructions: Dehydration, ED Kidney Stone w/ Colic Prescriptions: New ondansetron 4 mg tablet,disintegrating 4 mg PO Q6H PRN (Reason: nausea and vomiting) Qty: 20 0RF No Action oxycodone 5 MG tablet 15 mg PO TID omeprazole 20 mg capsule,delayed release(DR/EC) 20 mg PO DAILY Label Comments: Take 1 capsule by mouth once daily. cephalexin [cephalexin] 500 mg capsule 500 mg PO Q6 Qty: 20 0RF Primary Care Provider: Care Physician,No Primary Referrals: Care Physician,No Primary [Primary Care Provider] - Activity Restrictions/Additional Instructions: I suspect you do have another small kidney stone. Is possible that you passed it as there was a stone in her urine today. Your urine and kidney function was suggestive of some mild dehydration. If you change your mind would like further IV fluids please return to the ER. Your potassium was improved from your last visit but still mildly low. Try to either take a potassium supplement or eat some foods high in potassium such as bananas or sweet potatoes. Please follow- up with your surgeon as well as your urologist. Please start taking your antacid again as I think this will help for some of your GI symptoms. Disposition Disposition: Home, Self Care Discharge Date/Time: 09/20/22 00:18
[2022-09-19 22:18] LABS: Absolute Lymphocyte Count 1.06 X10^3/uL (0.83-4.51); Absolute Neutrophil Count 7.3 X10^3/uL (2.0-7.7); Basophil# 0.05 X10^3/uL; Basophil% 0.5 % (0-1); Eosinophil# 0.15 X10^3/uL; Eosinophils% 1.5 % (0-5); Hematocrit 49.5 % (40-54); Hemoglobin 16.7 g/dL (13.0-16.5); Lymphocyte # 1.06 X10^3/ul (0.83-4.51); Lymphocyte % 10.4 % (19-41); Mean Corp Hgb Conc 33.7 g/dL (32-36); Mean Corpuscular Volume 83.1 fL (80-94); Mean Platelet Vol. 11.3 fl (6.2-12.0); Monocyte# 1.51 X10^3/uL; Monocyte% 14.9 % (0-10); NRBC Flagged by Analyzer 0 % (0-5); Neutrophil # 7.27 X10^3/uL (2.7-7.7); Neutrophil % 71.5 % (47-70); POSITIVE DIFFERENTIAL YES; Platelet Count 194 K/mm3 (150-450); RBC Distribution Width CV 14.6 % (11.6-14.6); RBC Distribution Width SD 42.8 fl (35.1-43.9); Red Blood Count 5.96 M/mm3 (4.6-6.2); White Blood Count 10.2 K/mm3 (4.4-11.0)
[2022-09-19 22:20] LABS: Differential Indicated SCAN CRITERIA MET
[2022-09-19 22:25] LABS: Color, Urine Amber (Yellow); Glucose, Dipstick Normal (Normal); Leukocyte Esterase-Dipstick 25 /ul (Negative); Nitrite-Dipstick Negative (Negative); Occult Blood-Urine 250 /ul (Negative); Protein-Dipstick 30 mg/dl (Negative); Specific Gravity, Urine 1.025 (1.002-1.030); Urine Clarity Sl. Cloudy (Clear); Urine Urobilinogen 8 mg/dl (Normal)
[2022-09-19 22:26] LABS: Urine Bilirubin Dipstick 3 mg/dL (Negative)
[2022-09-19 22:28] LABS: Ketone-Dipstick 150 mg/dl (Negative)
[2022-09-19 22:31] LABS: Red Blood Cells-Urine 50-100 SEEN /hpf (0-5)
[2022-09-19 22:32] LABS: Bacteria RARE /hpf (None Seen); Mucous, Urine 2+ /hpf (<or=2+); Squamous Epithelial Cells - UA 0-5 SEEN /hpf (0-5); White Blood Cells 0-5 SEEN /hpf (0-5)
[2022-09-19 22:45] LABS: AST(SGOT) 28 U/L (15-37); Alanine Aminotransfer ALT/SGPT 67 U/L (16-61); Albumin, Serum 3.3 g/dL (3.2-5.0); Alkaline Phosphatase 77 U/L (45-117); Anion Gap 12 (5-15); BUN 9 mg/dL (7-18); BUN/Creat Ratio 9.2 RATIO (10-20); Bilirubin, Direct 0.67 mg/dL (0.00-0.30); CPK Total, Creatine Kinase 36 U/L (39-308); Calcium,Total 9.1 mg/dL (8.5-10.1); Chloride 99 mmol/L (98-107); Creatinine, Serum 0.98 mg/dL (0.70-1.30); EST Glomerular Filtration Rate 92 mL/min (>60); Est Glom Filt Rate - Afr Amer 111 mL/min (>60); Estimated Creatinine Clearance 104.21 ml/min; Globulin 3.3 g/dL (2.2-4.2); Glucose 139 mg/dL (74-106); Potassium 3.4 mmol/L (3.5-5.1); Protein, Total 6.6 g/dL (6.4-8.2); Sodium Level 137 mmol/L (136-145)
[2022-09-19 22:46] LABS: Anisocytosis RARE; Platelet Estimate ADEQUATE (ADEQ); Red Cell Morphology N CHROM NORMAL (NORM C&C)
[2022-09-19 23:26] VITALS: BP 98/69; PULSE 73; RESP 15; O2SAT 92
[2022-09-19 23:39] VITALS: BP 128/69; PULSE 73; RESP 15; O2SAT 92
[2022-09-20] MEDS: Ondansetron 4 MG/2 ML Vial IV (00:03)
[2022-09-20] MEDS: HYDROmorphone 1 MG/ML Syringe IV (00:04)
== END 2022-09-20 00:18 | disposition home or self-care (01) ==
PROVIDERS: Emergency Provider Emergency Medicine; Visit Provider Emergency Medicine
DX: R10.9 Unspecified abdominal pain (principal); E86.0 Dehydration; N20.0 Calculus of kidney; G89.29 Other chronic pain; M54.9 Dorsalgia, unspecified; R11.2 Nausea with vomiting, unspecified; Z79.899 Other long term (current) drug therapy; Z87.442 Personal history of urinary calculi; Z87.891 Personal history of nicotine dependence
CPT/HCPCS: 80048; 80076; 81001; 82360; 82550; 85025; 96374; 96375; 96376; 99282; A4216; J2405

== ENCOUNTER 2022-09-29 16:57 | Inpatient (IN) | payer MEDICAID, SELFPAY ==
[2022-09-29 16:57] VITALS: BP 144/93; PULSE 85; RESP 16; TEMP 36.6; O2SAT 96; BMI 45.1
[2022-09-29 17:39] LABS: Color, Urine Amber (Yellow); Glucose, Dipstick Normal (Normal); Leukocyte Esterase-Dipstick 25 /ul (Negative); Nitrite-Dipstick Negative (Negative); Occult Blood-Urine 10 /ul (Negative); Protein-Dipstick 30 mg/dl (Negative); Specific Gravity, Urine 1.025 (1.002-1.030); Urine Clarity Clear (Clear); Urine Urobilinogen 8 mg/dl (Normal)
[2022-09-29 17:48] LABS: Urine Bilirubin Dipstick 3 mg/dL (Negative)
[2022-09-29 17:49] LABS: Ketone-Dipstick 150 mg/dl (Negative)
[2022-09-29 17:51] LABS: Mucous, Urine 4+ /hpf (<or=2+)
--- NOTE | 2022-09-29 17:51 | CT_ITS ---
INDICATION: right flank pain, GASTRIC BYPASS EXAMINATION: CT ABDOMEN AND PELVIS WITHOUT CONTRAST - CT Abdomen And Pelvis W/O Contrast Injection TECHNIQUE: Helically acquired images were obtained of the abdomen and pelvis without oral or IV contrast. A radiation dose optimization technique was used for this scan. IV Contrast dosage and agent: None. Oral contrast: None. RADIATION DOSAGE (If Supplied By Facility): CTDIvol = ( 27.77 ) mGy, DLP = ( 1392.28 ) mGycm COMPARISON: 09/01/2020 FINDINGS: LOWER CHEST: Lung bases are clear. No cardiomegaly or pericardial effusion. LIVER: Stable in size configuration, subtle fatty infiltration suspected. No hepatic masses. GALLBLADDER AND BILIARY TREE: Gallbladder is mildly distended, no radiodense calcifications.. No gallbladder distension or wall edema. No intra- or extrahepatic biliary ductal dilation. PANCREAS: No focal cystic or solid mass. SPLEEN: Normal size without focal cystic or solid mass. ADRENAL GLANDS: No nodules. KIDNEYS AND URETERS: Kidneys have normal configuration, there is however mild hydronephrosis and subtle hydroureter to the level of the RIGHT UVJ, there are several small approximately 1 mm calcifications noted within the distal ureter at the RIGHT UVJ. No perinephric fluid collections noted. There is a nonobstructing 1 mm calcification in the midpole RIGHT kidney. No evidence of obstructive uropathy on LEFT. PERITONEUM: No ascites or free air. No other fluid collection. BOWEL: No evidence of acute appendicitis. No stomach or bowel distension. No focal inflammatory change. Postoperative changes of gastric sleeve are present. LYMPH NODES: No enlarged mesenteric or retroperitoneal lymph nodes. VESSELS: Aorta is non-dilated. URINARY BLADDER: Unremarkable. REPRODUCTIVE ORGANS: No pelvic masses. ABDOMINAL WALL: No discrete abdominal or pelvic wall hernia. BONES: Mild lumbar spondylosis noted particularly involving superior endplate of L3. Without significant change from prior examination. CT/Abdomen/Pelvis without Cont IMPRESSION: 1. Subtle approximately 1 mm calcifications in the distal RIGHT ureter at the level of the RIGHT UVJ with associated development of hydronephrosis and hydroureter and mild obstructive changes. 2. No evidence of obstructive uropathy on LEFT. 3. Distention of gallbladder without radiodense calcifications or ductal dilatation. 4. Postoperative changes of prior gastric sleeve. No bowel obstruction abscess free fluid or free air. Normal appendix noted. Electronically Signed: Fabian Cardenas MD at 18:40 EST ,
[2022-09-29 17:52] LABS: Bacteria 2+ /hpf (None Seen)
--- NOTE | 2022-09-29 17:52 | EX.ED.DYSGE1 ---
HPI History of Present Illness Chief Complaint: Flank Pain Informant: patient Narrative Narrative: Patient is a 37-year-old male with history of kidney stones, chronic back pain, GERD and recent gastric sleeve. Patient had issues with poor intake associated with his gastric sleeve and is also been having kidney stones. They have been small in size he correlates receiving IV fluids with passing these kidney stones. Patient was seen by myself about a week ago where he actually passed a stone that was visualized in the ER. He declined IV fluids at this time despite having a bump in his creatinine because he thought he might develop worsening kidney stone. Patient's kidney stone was sent to the lab on last visit and chart review shows that came back 20% calcium oxalate dihydrate and 80% ammonium acid urate. Patient states since being home he had had intermittent Right flank pain that worsened over the past day or 2. He is now having hard time keeping anything down because of the pain and associated nausea/vomiting. He tried to follow-up for hydration infusion was unable to get in. Was amenable to IV fluids at this time. Has not been able to tolerate his home pain medicine because of his symptoms. [facility] Medical History (Updated 09/29/22 @ 23:[address] Nancy Srivastava DO) Back pain Home Medications oxycodone 5 mg tablet 15 mg PO TID 02/07/18 [History Last Taken 08/20/18] omeprazole 20 mg capsule,delayed release 20 mg PO DAILY 08/27/22 [History Last Taken Unknown] cephalexin 500 mg capsule 500 mg PO Q6 #20 caps 09/02/22 [Rx Last Taken Unknown] ondansetron 4 mg disintegrating tablet 4 mg PO Q6H PRN nausea and vomiting #20 tabs 09/20/22 [Rx Last Taken Unknown] ursodiol 300 mg capsule mg 09/29/22 [History Last Taken Unknown] Allergy/AdvReac Type Severity Reaction Status Date / Time fentanyl AdvReac Rash Verified 09/29/22 16:58 hydrocodone [From [place]] AdvReac Rash Verified 09/29/22 16:58 Surgical History (Updated 09/29/22 @ 23:[address] Nancy Srivastava DO) S/P gastric sleeve procedure Social History Smoking Status: Current every day smoker tobacco type: cigarettes ROS ROS ED Constitutional Constitutional ED: Reports weight loss; Denies chills or fever(s) Cardiovascular Cardiovascular: Denies chest pain Respiratory/Chest Respiratory/Chest: Denies cough or dyspnea Gastrointestinal Gastrointestinal: Reports abdominal pain, nausea and vomiting Genitourinary Genitourinary ED: Reports other Details: decreased urination ; Denies dysuria, hematuria or urinary frequency Musculoskeletal Musculoskeletal: Reports back pain; Denies arthralgias or myalgias Integumentary Denies rash Neurologic Neurologic: Denies weakness Hematologic/Lymphatic Hematologic/Lymphatic: Denies easy bleeding or easy bruising EXAM Physical Exam Const Vital Signs: 09/29/22 16:57 09/29/22 19:56 09/29/22 19:57 Temperature 97.8 F 98 F Temperature Source Temporal Temporal Pulse Rate 85 74 Respiratory Rate 16 16 Blood Pressure 144/93 H 132/74 H Blood Pressure Mean 110 93 Pulse Ox 96 98 99 Oxygen Delivery Method Room Air Room Air Room Air Positive well nourished, well developed and obese General Appearance ED: well developed Nutritional Appearance: obese HEENT Reports dry mucous membranes Mouth ED: Yes dry mucous membranes Mouth: dry mucous membranes Eyes PERRL and EOMs intact bilaterally Neck supple Chest Wall inspection of chest normal and palpation of chest normal Resp normal respiratory effort and clear to auscultation bilaterally Cardio regular rate, regular rhythm and no murmurs GI normal to inspection, nondistended, normoactive bowel sounds and non-tender Palpation: Negative for guarding Back/Spine Back/Spine Narrative: Points to right flank as area of pain, not reproducible with direct palpation Neuro oriented x3 Sensorium / Orientation: alert Motor Exam: general weakness Psych mental status grossly normal Skin no rashes or lesions noted and no wounds MDM MDM MDM Narrative Medical decision making narrative: Patient evaluated for continued right flank pain as well as difficulty tolerating any type of food or fluids. Chart review performed. Patient has a history of kidney stones and during his last visit kidney stone was sent to the lab. It was found to be 80% ammonium acid urate and 20% calcium oxalate dihydrate. More likely these are precipitated by his dehydration. This is compounded by his gastric sleeve and the fact that is not able to tolerate adequate fluids. This is also seems to perpetuate the cycle of nausea and vomiting. Patient does have a leukocytosis of 12. 7 which is slightly uptrending however there is no source of obvious infection. Urinalysis is not consistent with infection. Creatinine continues to creep up and is now 1.00. Potassium is low now at 2.8. Urinalysis shows 150 ketones, 30 protein 0-5 white blood cells and 0-5 hyaline cast with 2+ bacteria and 1+ calcium oxalate crystals. CT of abdomen pelvis is performed as patient has continued pain. This shows subtle approximately 1 mm calcification of the distal right ureter at the level of the right UVJ with associated development of hydronephrosis and hydroureter and mild obstructive changes. Otherwise normal. Given patient's poor ability to tolerate fluid to keep himself hydrated as well as his continued pain he will be admitted for further hydration and pain control. Patient is given a total of 2 mg IV Dilaudid in the emergency well as well as a liter of IV fluids. He is started on oral and IV potassium replacement for his hypokalemia however he does not tolerate the oral potassium. Magnesium was added on which is normal. Given the small size of the stone that should pass spontaneously the bigger issue is his dehydration. Case is discussed with admitting physician, Dr. Espinal, who will continue hydration and pain control on the medical floor. We discussed that if his symptoms do not significantly improve he might require transfer back to further evaluation by surgery/urology. In this time we will try to treat him symptomatically with hydration and electrolyte replacement at our hospital. Lab Data Attestation: I reviewed the patient's lab results. Labs: Laboratory Results - last 24 hr 09/29/22 09/29/22 09/29/22 17:15 17:25 17:25 WBC 12.7 H RBC 6.10 Hgb 17.3 H Hct 49.6 MCV 81.3 MCH 28.4 MCHC 34.9 RDW Std Deviation 41.0 RDW Coeff of Jessica 14.1 Plt Count 205 MPV 12.0 Immature Gran % (Auto) 0.600 Neut % (Auto) 75.3 H Lymph % (Auto) 10.8 L [place] % (Auto) 12.2 H Eos % (Auto) 0.6 Baso % (Auto) 0.5 Absolute Neuts (auto) 9.5 H Absolute Lymphs (auto) 1.37 Nucleated RBC % 0 Differential Comment SCANNED Diff Path Review May foll Sodium 137 Potassium 2.8 L Chloride 96 L Carbon Dioxide 23.0 Anion Gap 18 H BUN 19 H Creatinine 1.00 Estim Creat Clear Calc 98.80 Est GFR (MDRD) Af Amer 109 Est GFR (MDRD) Non-Af 90 BUN/Creatinine Ratio 19.1 Glucose 132 H Calcium 9.4 Magnesium Total Bilirubin 2.00 H AST 51 H ALT 96 H Alkaline Phosphatase 75 Total Protein 7.3 Albumin 3.6 Globulin 3.7 Albumin/Globulin Ratio 1.0 Lipase 113 Urine Color Dorota Urine Clarity Clear Urine pH 6.0 Ur Specific [place] 1.025 Urine Protein 30 H Urine Glucose (UA) Normal Urine Ketones 150 A* Urine Occult Blood 10 H Urine Nitrite Negative Urine Bilirubin 3 H Urine Urobilinogen 8 H Ur Leukocyte Esterase 25 H Urine RBC 0-5 SEEN Urine WBC 0-5 SEEN Ur Squamous Epith Cells 0-5 SEEN Calcium Oxalate Crystal 1+ Urine Bacteria 2+ Hyaline Casts 0-5 SEEN Urine Mucus 4+ 09/29/22 17:25 WBC RBC Hgb Hct MCV MCH MCHC RDW Std Deviation RDW Coeff of Jessica Plt Count MPV Immature Gran % (Auto) Neut % (Auto) Lymph % (Auto) [place] % (Auto) Eos % (Auto) Baso % (Auto) Absolute Neuts (auto) Absolute Lymphs (auto) Nucleated RBC % Differential Comment Diff Path Review Sodium Potassium Chloride Carbon Dioxide Anion Gap BUN Creatinine Estim Creat Clear Calc Est GFR (MDRD) Af Amer Est GFR (MDRD) Non-Af BUN/Creatinine Ratio Glucose Calcium Magnesium 2.0 Total Bilirubin AST ALT Alkaline Phosphatase Total Protein Albumin Globulin Albumin/Globulin Ratio Lipase Urine Color Urine Clarity Urine pH Ur Specific [place] Urine Protein Urine Glucose (UA) Urine Ketones Urine Occult Blood Urine Nitrite Urine Bilirubin Urine Urobilinogen Ur Leukocyte Esterase Urine RBC Urine WBC Ur Squamous Epith Cells Calcium Oxalate Crystal Urine Bacteria Hyaline Casts Urine Mucus Radiography Diagnostic Testing: Clinical Impression(s) from Imaging Studies Abdomen/Pelvis CT 09/29/22 17:51 IMPRESSION: 1. Subtle approximately 1 mm calcifications in the distal RIGHT ureter at the level of the RIGHT UVJ with associated development of hydronephrosis and hydroureter and mild obstructive changes. 2. No evidence of obstructive uropathy on LEFT. 3. Distention of gallbladder without radiodense calcifications or ductal dilatation. 4. Postoperative changes of prior gastric sleeve. No bowel obstruction abscess free fluid or free air. Normal appendix noted. Electronically Signed: Fabian Cardenas MD at 18:40 EST , Discharge Plan Dx/Rx/DC Orders Clinical Impression: Kidney stone, Dehydration, S/P gastric sleeve procedure, Acute hypokalemia Disposition Disposition: Acute Care Hospital [facility] Discharge Date/Time: 09/29/22 20:50
[2022-09-29 17:53] LABS: Calcium Oxalate Crystals Ur 1+ /hpf (<or=2+); Hyaline Cast 0-5 SEEN /lpf (0-5); Red Blood Cells-Urine 0-5 SEEN /hpf (0-5); Squamous Epithelial Cells - UA 0-5 SEEN /hpf (0-5); White Blood Cells 0-5 SEEN /hpf (0-5)
[2022-09-29] MEDS: Ondansetron 4 MG/2 ML Vial IV (17:56)
[2022-09-29] MEDS: HYDROmorphone 1 MG/ML Syringe IV ×3 (17:56→23:04)
[2022-09-29] MEDS: 0.9% Normal Saline 1,000 ML 1000 ML IV (17:56)
[2022-09-29 17:58] LABS: Absolute Lymphocyte Count 1.37 X10^3/uL (0.83-4.51); Absolute Neutrophil Count 9.5 X10^3/uL (2.0-7.7); Basophil# 0.06 X10^3/uL; Basophil% 0.5 % (0-1); Eosinophil# 0.08 X10^3/uL; Eosinophils% 0.6 % (0-5); Hematocrit 49.6 % (40-54); Hemoglobin 17.3 g/dL (13.0-16.5); Lymphocyte # 1.37 X10^3/ul (0.83-4.51); Lymphocyte % 10.8 % (19-41); Mean Corp Hgb Conc 34.9 g/dL (32-36); Mean Corpuscular Hgb 28.4 pg (27.0-32.0); Mean Corpuscular Volume 81.3 fL (80-94); Monocyte# 1.54 X10^3/uL; Monocyte% 12.2 % (0-10); NRBC Flagged by Analyzer 0 % (0-5); Neutrophil # 9.53 X10^3/uL (2.7-7.7); Neutrophil % 75.3 % (47-70); POSITIVE DIFFERENTIAL YES; Platelet Count 205 K/mm3 (150-450); RBC Distribution Width CV 14.1 % (11.6-14.6); White Blood Count 12.7 K/mm3 (4.4-11.0)
[2022-09-29 18:01] LABS: Differential Indicated SCAN CRITERIA MET
[2022-09-29 18:17] LABS: AST(SGOT) 51 U/L (15-37); Alanine Aminotransfer ALT/SGPT 96 U/L (16-61); Albumin, Serum 3.6 g/dL (3.2-5.0); Alkaline Phosphatase 75 U/L (45-117); Anion Gap 18 (5-15); BUN 19 mg/dL (7-18); BUN/Creat Ratio 19.1 RATIO (10-20); Calcium,Total 9.4 mg/dL (8.5-10.1); Chloride 96 mmol/L (98-107); EST Glomerular Filtration Rate 90 mL/min (>60); Est Glom Filt Rate - Afr Amer 109 mL/min (>60); Globulin 3.7 g/dL (2.2-4.2); Glucose 132 mg/dL (74-106); Lipase 113 U/L (73-393); Potassium 2.8 mmol/L (3.5-5.1); Protein, Total 7.3 g/dL (6.4-8.2); Sodium Level 137 mmol/L (136-145)
[2022-09-29 18:28] LABS: Differential Comment SCANNED
[2022-09-29] MEDS: Potassium Chloride 10mEq/100mL 10 MEQ/100 ML IV.SOLN. 100 MEQ IV BOLUS (19:52)
--- NOTE | 2022-09-29 19:52 | HP.PCM_ITS ---
[facility] - General General Date of Admission: 09/29/22 Date of Service: 09/29/22 Chief Complaint: Right flank pain HPI Narrative FIOR PHAN, is a 37 M who presents to the emergency room with chief complaint of right flank pain. Onset of symptoms began approximately 2 days ago and have progressively gotten worse associated with nausea and vomiting and difficulty keeping any food or liquid down. Patient has a significant past medical history of gastric sleeve bypass surgery done 3 months ago at the [facility]. Since that time he has developed difficulty maintaining hydration and has had calcium oxalate kidney stones several times through the month of August. Patient has slight elevation of creatinine today and continues to have significant discomfort in the right flank.. CT scan shows a 1 mm stone at the right UVJ with some hydronephrosis associated with that. He will be admitted to general medical floor for IV hydration and pain medication. Patient denies any chest pain, shortness of breath, fever or chills at this present time. He does have a follow-up appointment with his gastric bypass surgeon in the next few days at [facility]. [facility] Medical History (Updated 09/29/22 @ 19:[address] Garrick Espinal MD) Back pain Home Medications oxycodone 5 mg tablet 15 mg PO TID 02/07/18 [History Last Taken 08/20/18] omeprazole 20 mg capsule,delayed release 20 mg PO DAILY 08/27/22 [History Last Taken Unknown] cephalexin 500 mg capsule 500 mg PO Q6 #20 caps 09/02/22 [Rx Last Taken Unknown] ondansetron 4 mg disintegrating tablet 4 mg PO Q6H PRN nausea and vomiting #20 tabs 09/20/22 [Rx Last Taken Unknown] Allergy/AdvReac Type Severity Reaction Status Date / Time fentanyl AdvReac Rash Verified 09/29/22 16:58 hydrocodone [From [place]] AdvReac Rash Verified 09/29/22 16:58 Surgical History (Updated 09/29/22 @ 19:[address] Garrick Espinal MD) S/P gastric sleeve procedure Social History Smoking Status: Current every day smoker tobacco type: cigarettes ROS Constitutional Constitutional: Reports change in weight; Denies chills or fatigue Eyes Eyes: Denies blurry vision ENT HEENT: Denies abnormal hearing Cardiovascular Cardiovascular: Denies chest pain Respiratory/Chest Respiratory/Chest: Denies cough Gastrointestinal Gastrointestinal: Reports abdominal pain, nausea and vomiting Genitourinary Genitourinary: Denies dysuria Musculoskeletal Musculoskeletal: Denies back pain Integumentary Integumentary: Denies dry skin Neurologic Neurologic: Denies abnormal gait Psychiatric Psychiatric: Denies anxiety Vital Signs Vital Signs Vital Signs: 09/29/22 16:57 Temperature 97.8 F Temperature Source Temporal Pulse Rate 85 Respiratory Rate 16 Blood Pressure 144/93 H Blood Pressure Mean 110 Pulse Ox 96 Oxygen Delivery Method Room Air Weight Weight: 297 lb Body Mass Index (BMI) 45.1 Physical Exam Const oriented x3 General Appearance: cooperative HEENT normocephalic and head/scalp atraumatic Eyes PERRL Lymph Lymphatic: no lymphadenopathy noted Resp normal respiratory effort, normal air movement and clear to auscultation bilaterally Cardio regular rate, regular rhythm, S1 normal heart sound and S2 normal heart sound GI Palpation: tender RLQ (flank) Extremity normal capillary refill Skin General Skin Exam: no breakdown Neuro no focal motor deficits and no sensory deficits noted Psych thought process normal, cooperative and affect normal Results Lab / Micro Data Result Diagrams: 09/29/22 17:25 09/29/22 17:25 Labs: Laboratory Results - last 24 hr 09/29/22 17:15: Urine Color Dorota, Urine Clarity Clear, Urine pH 6.0, Ur Speci fic [place] 1.025, Urine Protein 30 H, Urine Glucose (UA) Normal, Urine Ketones 150 A*, Urine Occult Blood 10 H, Urine Nitrite Negative, Urine Bilirubin 3 H, Urine Urobilinogen 8 H, Ur Leukocyte Esterase 25 H, Urine RBC 0-5 SEEN, Urine WBC 0-5 SEEN, Ur Squamous Epith Cells 0-5 SEEN, Calcium Oxalate Crystal 1+, Urine Bacteria 2+, Hyaline Casts 0-5 SEEN, Urine Mucus 4+ 09/29/22 17:25: WBC 12.7 H, RBC 6.10, Hgb 17.3 H, Hct 49.6, MCV 81.3, MCH 28.4, MCHC 34.9, RDW Std Deviation 41.0, RDW Coeff of Jessica 14.1, Plt Count 205, MPV 12.0, Immature Gran % (Auto) 0.600, Neut % (Auto) 75.3 H, Lymph % (Auto) 10.8 L, [place] % (Auto) 12.2 H, Eos % (Auto) 0.6, Baso % (Auto) 0.5, Absolute Neuts (auto) 9.5 H, Absolute Lymphs (auto) 1.37, Nucleated RBC % 0, Differential Comment SCANNED, Diff Path Review January foll 09/29/22 17:25: Sodium 137, Potassium 2.8 L, Chloride 96 L, Carbon Dioxide 23.0, Anion Gap 18 H, BUN 19 H, Creatinine 1.00, Estim Creat Clear Calc 98.80, Est GFR (MDRD) Af Amer 109, Est GFR (MDRD) Non-Af 90, BUN/Creatinine Ratio 19.1, Glucose 132 H, Calcium 9.4, Total Bilirubin 2.00 H, AST 51 H, ALT 96 H, Alkaline Phosphatase 75, Total Protein 7.3, Albumin 3.6, Globulin 3.7, Albumin/Globulin Ratio 1.0, Lipase 113 Radiology Impression Abdomen/Pelvis CT 09/29/22 17:51 IMPRESSION: 1. Subtle approximately 1 mm calcifications in the distal RIGHT ureter at the level of the RIGHT UVJ with associated development of hydronephrosis and hydroureter and mild obstructive changes. 2. No evidence of obstructive uropathy on LEFT. 3. Distention of gallbladder without radiodense calcifications or ductal dilatation. 4. Postoperative changes of prior gastric sleeve. No bowel obstruction abscess free fluid or free air. Normal appendix noted. Electronically Signed: Fabian Cardenas MD at 18:40 EST , Assessment & Plan Assessment/Plan (1) Kidney stone: (2) Dehydration: (3) S/P gastric sleeve procedure: (4) Abdominal wall pain: PLAN: Plan 1 right flank pain with 1mm right uvj kidney stone and hydronephrosis?admit patient to general medical floor continue IV Dilaudid 1 mg IV every 3 hours as needed pain, Zofran 4 mg IV every 8 hours for Nausea. 2. Dehydration?IV normal saline at a rate of 150 cc/h, repeat BMP in the a.m. 3. DVT prophylaxis?SCDs
[2022-09-29 19:56] VITALS: O2SAT 98
[2022-09-29 19:57] VITALS: BP 132/74; PULSE 74; RESP 16; TEMP 36.6; O2SAT 99
[2022-09-29 20:50] VITALS: BMI 45.1
[2022-09-29 21:10] VITALS: BP 140/88; PULSE 64; RESP 18; TEMP 36.6; O2SAT 98
[2022-09-30] MEDS: Cephalexin 500 MG Capsule PO ×5 (00:11→23:18)
[2022-09-30] MEDS: 0.9% Normal Saline 1,000 ML 150 ML IV ×2 (02:44→09:30)
[2022-09-30] MEDS: Ondansetron 4 MG/2 ML Vial IV (02:45)
[2022-09-30] MEDS: HYDROmorphone 1 MG/ML Syringe IV ×6 (02:45→23:18)
[2022-09-30 03:02] VITALS: BP 155/87; PULSE 101; RESP 20; TEMP 36.8; O2SAT 99
--- NOTE | 2022-09-30 03:06 | NURSING ---
PT UNSURE OF HOME MEDICATIONS. RECOMMEND CALLING [facility] FOR UP-TO-DATE & ACCURATE LIST.
[2022-09-30 06:48] LABS: Anion Gap 14 (5-15); BUN 15 mg/dL (7-18); BUN/Creat Ratio 14.4 RATIO (10-20); Calcium,Total 8.4 mg/dL (8.5-10.1); Chloride 98 mmol/L (98-107); Creatinine, Serum 1.04 mg/dL (0.70-1.30); EST Glomerular Filtration Rate 86 mL/min (>60); Est Glom Filt Rate - Afr Amer 104 mL/min (>60); Glucose 112 mg/dL (74-106); Potassium 2.6 mmol/L (3.5-5.1); Sodium Level 136 mmol/L (136-145)
[2022-09-30 07:49] VITALS: O2SAT 99
[2022-09-30 08:52] VITALS: BP 137/84; PULSE 67; RESP 18; TEMP 36.5; O2SAT 98
[2022-09-30] MEDS: Potassium Chloride Oral Tablet 20 MEQ 40 MEQ PO (09:29)
--- NOTE | 2022-09-30 09:34 | NURSING ---
Just gave pt his potassium po and pt vomitted approximately 2 min after this RN gave it.
--- NOTE | 2022-09-30 10:28 | PCM.PN.HOSP ---
Subjective Subjective Follow-up for right flank pain mostly due to ureteral stone. Objective Data Objective Data Vital Signs: Vital Signs Temp Pulse Resp BP Pulse Ox O2 Del Method 97.7 F L 67 18 137/84 H 98 Room Air 09/30/22 08:52 09/30/22 08:52 09/30/22 08:52 09/30/22 08:52 09/30/22 08:52 09/30/22 09:00 Oxygen Delivery Method Room Air Weight: 297 lb Body Mass Index (BMI) 45.1 Intake & Output: Intake and Output for Last 24 Hours 09/28/22 09/29/22 09/30/22 23:59 23:59 23:59 Intake Total 1100 / 1100 1000 / 1000 Balance 1100 / 1100 1000 / 1000 Lab / Micro Data Result Diagrams: 09/29/22 17:25 09/30/22 05:37 Labs: Laboratory Results - last 24 hr 09/29/22 17:15: Urine Color Dorota, Urine Clarity Clear, Urine pH 6.0, Ur Specific [place] 1.025, Urine Protein 30 H, Urine Glucose (UA) Normal, Urine Ketones 150 A*, Urine Occult Blood 10 H, Urine Nitrite Negative, Urine Bilirubin 3 H, Urine Urobilinogen 8 H, Ur Leukocyte Esterase 25 H, Urine RBC 0-5 SEEN, Urine WBC 0-5 SEEN, Ur Squamous Epith Cells 0-5 SEEN, Calcium Oxalate Crystal 1+, Urine Bacteria 2+, Hyaline Casts 0-5 SEEN, Urine Mucus 4+ 09/29/22 17:25: WBC 12.7 H, RBC 6.10, Hgb 17.3 H, Hct 49.6, MCV 81.3, MCH 28.4, MCHC 34.9, RDW Std Deviation 41.0, RDW Coeff of Jessica 14.1, Plt Count 205, MPV 12.0, Immature Gran % (Auto) 0.600, Neut % (Auto) 75.3 H, Lymph % (Auto) 10.8 L, [place] % (Auto) 12.2 H, Eos % (Auto) 0.6, Baso % (Auto) 0.5, Absolute Neuts (auto) 9.5 H, Absolute Lymphs (auto) 1.37, Nucleated RBC % 0, Differential Comment SCANNED, Diff Path Review January09/29/22 17:25: Sodium 137, Potassium 2.8 L, Chloride 96 L, Carbon Dioxide 23.0, Anion Gap 18 H, BUN 19 H, Creatinine 1.00, Estim Creat Clear Calc 98.80, Est GFR (MDRD) Af Amer 109, Est GFR (MDRD) Non-Af 90, BUN/Creatinine Ratio 19.1, Glucose 132 H, Calcium 9.4, Total Bilirubin 2.00 H, AST 51 H, ALT 96 H, Alkaline Phosphatase 75, Total Protein 7.3, Albumin 3.6, Globulin 3.7, Albumin/Globulin Ratio 1.0, Lipase 113 09/29/22 17:25: Magnesium 2.0 09/30/22 05:37: Sodium 136, Potassium 2.6 L*, Chloride 98, Carbon Dioxide 24.0, Anion Gap 14, BUN 15, Creatinine 1.04, Estim Creat Clear Calc 95.00, Est GFR (MDRD) Af Amer 104, Est GFR (MDRD) Non-Af 86, BUN/Creatinine Ratio 14.4, Glucose 112 H, Calcium 8.4 L Radiography Diagnostic Testing: Radiology Impression Abdomen/Pelvis CT 09/29/22 17:51 IMPRESSION: 1. Subtle approximately 1 mm calcifications in the distal RIGHT ureter at the level of the RIGHT UVJ with associated development of hydronephrosis and hydroureter and mild obstructive changes. 2. No evidence of obstructive uropathy on LEFT. 3. Distention of gallbladder without radiodense calcifications or ductal dilatation. 4. Postoperative changes of prior gastric sleeve. No bowel obstruction abscess free fluid or free air. Normal appendix noted. Assessment & Plan Assessment/Plan (1) Kidney stone: (2) Dehydration: (3) S/P gastric sleeve procedure: (4) Abdominal wall pain: PLAN: Plan This is 37-year-old gentleman with history of kidney stones was admitted with right-sided flank pain. Flank pain described as intermittent, colicky in nature with progressive worsening over 2 days. Patient also had associated nausea and vomiting but no fever. Patient was seen in ED about a week ago and brought kidney stone which he passed. On lab analysis came out to be calcium oxalate dihydrate 20% 80% ammonium acid urate; therefore mainly uric acid stone. 1 Right flank pain with 1mm right UVJ kidney stone and hydronephrosis: The patient is being admitted on [facility] floor. Abdomen pelvis CT shows 1 mm calcification in distal right ureter at right UVJ with associated hydronephrosis and hydroureter and mild obstructive changes. No evidence of obstructive uropathy on left side. Patient on IV fluid for saline diuresis and pain control with the Dilaudid. On Zofran as needed. Urologist is consulted. Serum uric acid ordered 2. Dehydration?patient admitted with hematocrit 49.6%, hemoglobin 10.3%. Patient baseline hematocrit is 47%. Mild leukocytosis. IV fluid changed to Ringer lactate to balance hypokalemia. Patient also IV potassium supplement. Serum phosphorus 4.1. Serum magnesium 2.0. 3. Morbid obesity status post gastric sleeve surgery with history of chronic back pain: Patient stated started having kidney stone problem after gastric sleeve surgery July 2022 DVT prophylaxis?SCDs Total time of the visit including total time spent in counseling or coordination of care, (more than 50% of the total time, spent in obtaining medical information from nurses and other ancillary care providers,explaining to the patient about labs, imaging, diagnosis and management of active complex medical conditions), review of imaging, review of labs and imaging is 35 minutes. Laboratory Results 09/29/22 17:15: Urine Color Dorota, Urine Clarity Clear, Urine pH 6.0, Ur Specific [place] 1.025, Urine Protein 30 H, Urine Glucose (UA) Normal, Urine Ketones 150 A*, Urine Occult Blood 10 H, Urine Nitrite Negative, Urine Bilirubin 3 H, Urine Urobilinogen 8 H, Ur Leukocyte Esterase 25 H, Urine RBC 0-5 SEEN, Urine WBC 0-5 SEEN, Ur Squamous Epith Cells 0-5 SEEN, Calcium Oxalate Crystal 1+, Urine Bacteria 2+, Hyaline Casts 0-5 SEEN, Urine Mucus 4+ 09/29/22 17:25: WBC 12.7 H, RBC 6.10, Hgb 17.3 H, Hct 49.6, MCV 81.3, MCH 28.4, MCHC 34.9, RDW Std Deviation 41.0, RDW Coeff of Jessica 14.1, Plt Count 205, MPV 12.0, Immature Gran % (Auto) 0.600, Neut % (Auto) 75.3 H, Lymph % (Auto) 10.8 L, Stone % (Auto) 12.2 H, Eos % (Auto) 0.6, Baso % (Auto) 0.5, Absolute Neuts (auto) 9.5 H, Absolute Lymphs (auto) 1.37, Nucleated RBC % 0, Differential Comment SCANNED, Diff Path Review January foll 09/29/22 17:25: Sodium 137, Potassium 2.8 L, Chloride 96 L, Carbon Dioxide 23.0, Anion Gap 18 H, BUN 19 H, Creatinine 1.00, Estim Creat Clear Calc 98.80, Est GFR (MDRD) Af Amer 109, Est GFR (MDRD) Non-Af 90, BUN/Creatinine Ratio 19.1, Glucose 132 H, Calcium 9.4, Total Bilirubin 2.00 H, AST 51 H, ALT 96 H, Alkaline Phosphatase 75, Total Protein 7.3, Albumin 3.6, Globulin 3.7, Albumin/Globulin Ratio 1.0, Lipase 113 09/29/22 17:25: Magnesium 2.0 09/30/22 05:37: Sodium 136, Potassium 2.6 L*, Chloride 98, Carbon Dioxide 24.0, Anion Gap 14, BUN 15, Creatinine 1.04, Estim Creat Clear Calc 95.00, Est GFR (MDRD) Af Amer 104, Est GFR (MDRD) Non-Af 86, BUN/Creatinine Ratio 14.4, Glucose 112 H, Calcium 8.4 L Clinical Impression(s) from Imaging Studies Abdomen/Pelvis CT 09/29/22 17:51 IMPRESSION: 1. Subtle approximately 1 mm calcifications in the distal RIGHT ureter at the level of the RIGHT UVJ with associated development of hydronephrosis and hydroureter and mild obstructive changes. 2. No evidence of obstructive uropathy on LEFT. 3. Distention of gallbladder without radiodense calcifications or ductal dilatation. 4. Postoperative changes of prior gastric sleeve. No bowel obstruction abscess free fluid or free air. Normal appendix noted. Electronically Signed: Fabian Cardenas MD at 18:40 EST , Charges/Coding Visit Charges Inpatient E&M: 28259 Subs Hosp L2
[2022-09-30] MEDS: 0.9% Saline Lock 10 ML Syringe IV ×3 (10:31→23:18)
[2022-09-30 11:00] LABS: Phosphorus 4.1 mg/dL (2.5-4.9)
[2022-09-30] MEDS: Potassium Chloride 10mEq/100mL 10 MEQ/100 ML IV.SOLN. 100 MEQ IV BOLUS ×4 (11:02→15:29)
--- NOTE | 2022-09-30 12:40 | PCM.CONS.U ---
HPI Consult Data Date of Consult: 09/30/22 HPI Narrative Reason for Consultation: Tiny stone in distal ureter HPI Narrative: FIOR PHAN, is a 37 M who presents with severe intractable pain from a very very small stone barely visible on CAT scan in the distal right ureter, I would not recommend any surgical intervention is only 1 mm stone is very likely can opacity past and already pain control fluids treat the infection and no intervention is required on my part the stone will pass on its own call me with questions. [facility] Medical History (Updated 09/29/22 @ 23:[address] Nancy Srivastava, ) Back pain Home Medications ondansetron 4 mg disintegrating tablet 4 mg PO Q6H PRN nausea and vomiting #20 tabs 09/20/22 [Rx Last Taken Unknown] ursodiol 300 mg capsule 300 mg PO BID pain after bariatric surgery 09/29/22 [History Last Taken Unknown] oxycodone 15 mg tablet 15 mg PO TID PRN PRN Pain 09/30/22 [History Last Taken Unknown] pantoprazole 40 mg tablet,delayed release 40 mg PO BID stomach 09/30/22 [History Last Taken Unknown] tizanidine 4 mg tablet 4 mg PO BID pain 09/30/22 [History Last Taken Unknown] Allergy/AdvReac Type Severity Reaction Status Date / Time fentanyl AdvReac Rash Verified 09/29/22 16:58 hydrocodone [From [place]] AdvReac Rash Verified 09/29/22 16:58 Surgical History (Updated 09/29/22 @ 23:[address] Nancy Srivastava, ) S/P gastric sleeve procedure Social History Smoking Status: Current every day smoker tobacco type: cigarettes Lab / Micro Data Result Diagrams: 09/29/22 17:25 09/30/22 05:37 Labs: Laboratory Results - last 24 hr 09/29/22 17:15: Urine Color Dorota, Urine Clarity Clear, Urine pH 6.0, Ur Specific [place] 1.025, Urine Protein 30 H, Urine Glucose (UA) Normal, Urine Ketones 150 A*, Urine Occult Blood 10 H, Urine Nitrite Negative, Urine Bilirubin 3 H, Urine Urobilinogen 8 H, Ur Leukocyte Esterase 25 H, Urine RBC 0-5 SEEN, Urine WBC 0-5 SEEN, Ur Squamous Epith Cells 0-5 SEEN, Calcium Oxalate Crystal 1+, Urine Bacteria 2+, Hyaline Casts 0-5 SEEN, Urine Mucus 4+ 09/29/22 17:25: WBC 12.7 H, RBC 6.10, Hgb 17.3 H, Hct 49.6, MCV 81.3, MCH 28.4, MCHC 34.9, RDW Std Deviation 41.0, RDW Coeff of Jessica 14.1, Plt Count 205, MPV 12.0, Immature Gran % (Auto) 0.600, Neut % (Auto) 75.3 H, Lymph % (Auto) 10.8 L, [place] % (Auto) 12.2 H, Eos % (Auto) 0.6, Baso % (Auto) 0.5, Absolute Neuts (auto) 9.5 H, Absolute Lymphs (auto) 1.37, Nucleated RBC % 0, Differential Comment SCANNED, Diff Path Review January foll 09/29/22 17:25: Sodium 137, Potassium 2.8 L, Chloride 96 L, Carbon Dioxide 23.0, Anion Gap 18 H, BUN 19 H, Creatinine 1.00, Estim Creat Clear Calc 98.80, Est GFR (MDRD) Af Amer 109, Est GFR (MDRD) Non-Af 90, BUN/Creatinine Ratio 19.1, Glucose 132 H, Calcium 9.4, Total Bilirubin 2.00 H, AST 51 H, ALT 96 H, Alkaline Phosphatase 75, Total Protein 7.3, Albumin 3.6, Globulin 3.7, Albumin/Globulin Ratio 1.0, Lipase 113 09/29/22 17:25: Magnesium 2.0 09/30/22 05:37: Sodium 136, Potassium 2.6 L*, Chloride 98, Carbon Dioxide 24.0, Anion Gap 14, BUN 15, Creatinine 1.04, Estim Creat Clear Calc 95.00, Est GFR (MDRD) Af Amer 104, Est GFR (MDRD) Non-Af 86, BUN/Creatinine Ratio 14.4, Glucose 112 H, Calcium 8.4 L 09/30/22 05:37: Phosphorus 4.1 Radiology Impression Abdomen/Pelvis CT 09/29/22 17:51 IMPRESSION: 1. Subtle approximately 1 mm calcifications in the distal RIGHT ureter at the level of the RIGHT UVJ with associated development of hydronephrosis and hydroureter and mild obstructive changes. 2. No evidence of obstructive uropathy on LEFT. 3. Distention of gallbladder without radiodense calcifications or ductal dilatation. 4. Postoperative changes of prior gastric sleeve. No bowel obstruction abscess free fluid or free air. Normal appendix noted. Electronically Signed: Fabian Cardenas MD at 18:40 EST ,
[2022-09-30 13:11] LABS: Uric Acid 10.2 mg/dL (3.5-7.2)
--- NOTE | 2022-09-30 13:30 | CASEMGMT ---
RN [facility] [employer] FR[employer] DESK COORDINATOR CM to room to meet with patient for initial transition planning/care coordination assessment. LOGAN BOOGIE introduced self and role at [facility]. Pt voices understanding and consents to assessment at this time. Pt resting in bed in no distress at this time. Pt is A/O at this time and answers all questions appropriately. Care providers, pharmacy, and demographics verified/updated at this time. PCP: Has a PCP @ [facility] in [place], but does not remember her name, stating Brigitte something. States he was in to see her about 3 months ago and plans to continue seeing her. He declines wanting list of local PCP's. Specialists: Dr [facility]/Gastric bypass surgery. Urologist @ [facility]-unable to recall name [facility]: [facility] Insurance: Magda CARROIN Prescription Benefit: Yes LNOK: , Kayleen Living Arrangements: Lives w/ and 2 kids in one-story home w/no steps to enter. Independent w/ADL's. supportive and able to help, as needed. Transportation: has been driving since pt's surgery in Nov DME: Has a PAP, but has not been using it. Has a glucometer, but has not used it in a while, mostly singe gastric bypass. Ambulates independently w/out AD. Pt states no need for further DME at this time. HHC/SNF: No hx of either. No needs identified. Pt wishes to return home and states has no concerns with going home at time of discharge. CM to follow for any discharge planning/needs. Pt voices no further concerns/needs at this time. Advised pt to ask for CM if any further questions/concerns/needs arise. Voices understanding. PLAN: Home Chichi KONG RN, CM
[2022-09-30 15:00] VITALS: BP 110/76; PULSE 71; RESP 20; TEMP 36.6; O2SAT 99
[2022-09-30] MEDS: Pantoprazole Sodium 20 MG Tablet PO (15:28)
[2022-09-30] MEDS: Lactated Ringers 1,000 ML 100 ML IV (17:28)
[2022-09-30] MEDS: Calcium Carbonate 500 MG Tablet 1000 MG PO (19:33)
[2022-09-30 21:00] VITALS: BP 124/71; PULSE 60; RESP 16; TEMP 36.5; O2SAT 97
[2022-09-30 22:00] VITALS: BP 125/70; PULSE 62; RESP 16; TEMP 36.2; O2SAT 96
--- NOTE | 2022-09-30 22:00 | NURSING ---
Pt requested not to be woken up for 0300 vitals if sleeping at that time.
--- NOTE | 2022-10-01 03:00 | NURSING ---
Per patient request, pt was not woke up for 0300 vitals. Will get vitals at 0530 when given ATB
[2022-10-01] MEDS: Lactated Ringers 1,000 ML 100 ML IV (03:28)
[2022-10-01 06:00] VITALS: BP 118/73; PULSE 68; RESP 16; TEMP 36.7; O2SAT 95
[2022-10-01 06:03] VITALS: BP 118/73; PULSE 68; RESP 16; TEMP 36.7; O2SAT 95
[2022-10-01 07:25] VITALS: O2SAT 95
[2022-10-01 09:39] LABS: Pathologist Review Reviewed
[2022-10-01] MEDS: Pantoprazole Sodium 20 MG Tablet PO (09:52)
[2022-10-01] MEDS: HYDROmorphone 1 MG/ML Syringe IV ×2 (09:52→12:37)
[2022-10-01] MEDS: Ondansetron 4 MG/2 ML Vial IV (09:59)
[2022-10-01 12:00] VITALS: BP 156/109; PULSE 91; RESP 16; TEMP 36.6; O2SAT 95
[2022-10-01] MEDS: Cephalexin 500 MG Capsule PO (12:08)
--- NOTE | 2022-10-01 14:23 | DCINST_ITS ---
Discharge Instructions Diet Discharge Diet: No restrictions Activity Discharge Activity: Return to Normal Activity Weight Bearing Status: Full weight bearing Follow Up Care Test Results: Test results from this visit will be discussed in further detail at your follow- up appointment, if applicable. Discharge Plan Admission Admit Date/Time: 09/29/22 20:00 Primary Reason for Your Visit: right ureteral stone Attending Provider: Ramesh Villeda Primary Care Provider: Care Physician,No Primary Consulting Providers: Garrick Espinal ; Killian Mcdonough Discharge Orders/Prescriptions Prescriptions: New cephalexin 500 mg Capsule 500 mg PO Q6 Qty: 12 0RF Continued ondansetron 4 mg tablet,disintegrating 4 mg PO Q6H PRN (Reason: nausea and vomiting) Qty: 20 0RF ursodiol 300 mg capsule 300 mg PO BID Label Comments: Take 1 capsule by mouth twice daily. TO START AFTER SURGERY tizanidine 4 mg tablet 4 mg PO BID Label Comments: TAKE 1 TABLET BY MOUTH TWICE DAILY NEEDED pantoprazole 40 mg tablet,delayed release (DR/EC) 40 mg PO BID Label Comments: TAKE 1 TABLET BY MOUTH TWICE DAILY oxycodone 15 mg tablet 15 mg PO TID PRN PRN (Reason: Pain) Label Comments: TAKE 1 TABLET BY MOUTH THREE TIMES DAILY NEEDED FOR 30 DAYS original rx 09/15/22 Referrals / Follow Up: Care Physician,No Primary [Primary Care Provider] - (Follow-up with your primary care physician in the next 3 weeks) Disposition Disposition (needs filled in before D/C Order can be placed): Home, Self Care
[2022-10-01 15:27] LABS: Anion Gap 11 (5-15); BUN 7 mg/dL (7-18); BUN/Creat Ratio 9.5 RATIO (10-20); Calcium,Total 8.9 mg/dL (8.5-10.1); Chloride 100 mmol/L (98-107); Creatinine, Serum 0.74 mg/dL (0.70-1.30); EST Glomerular Filtration Rate 127 mL/min (>60); Est Glom Filt Rate - Afr Amer 154 mL/min (>60); Estimated Creatinine Clearance 133.51 ml/min; Glucose 107 mg/dL (74-106); Potassium 3.1 mmol/L (3.5-5.1); Sodium Level 139 mmol/L (136-145)
[2022-10-01] MEDS: Potassium Chloride Oral Tablet 10 MEQ 20 MEQ PO (15:59)
--- NOTE | 2022-10-01 16:08 | PCM.DC.SUM ---
Providers Date of Admission: 09/29/22 Date of Discharge: 10/01/22 Primary Care Physician: Tamara Primary Care Phys Consultations 09/30/22 09:15 Consult: Urology Routine Consulting Provider: Killian Mcdonough Reason for Consult: kidney stone EMERGENT Consult: No MD Notified: Yes Date Notified: 09/30/22 Time Notified: 09:15 Method of Notification: phone Reason For Visit: DEHYDRATION/ KIDNEY STONES Diagnosis Discharge Diagnosis (1) Kidney stone: Status: Acute Code(s): N20.0 - Calculus of kidney (2) Dehydration: Status: Acute Code(s): E86.0 - Dehydration (3) S/P gastric sleeve procedure: Status: Acute Code(s): Z90.3 - Acquired absence of stomach [part of] (4) Abdominal wall pain: Status: Acute Code(s): R10.9 - Unspecified abdominal pain Plan 1. Kidney stone in the distal right ureter #2 chronic back pain Medications at Discharge Home Medications ondansetron 4 mg disintegrating tablet 4 mg PO Q6H PRN nausea and vomiting #20 tabs 09/20/22 ursodiol 300 mg capsule 300 mg PO BID pain after bariatric surgery 09/29/22 oxycodone 15 mg tablet 15 mg PO TID PRN PRN Pain 09/30/22 pantoprazole 40 mg tablet,delayed release 40 mg PO BID stomach 09/30/22 tizanidine 4 mg tablet 4 mg PO BID pain 09/30/22 cephalexin 500 mg capsule 500 mg PO Q6 #12 caps 10/01/22 Hospital Course Operations None Procedures None Summary of Care Provided Minutes Spent on Discharge: 30 Hospital Course: This 37-year-old white male was seen in the emergency room at [facility] with a chief complaint of right flank pain, it was associated with nausea and vomiting and difficulty in keeping fluid and liquid down. Work-up in the emergency room included a CT scan of the abdomen and pelvis which showed a 1 mm stone at the right ureterovesicular junction with some hydronephrosis associated with it. Patient was admitted to [place] [address], given IV fluids, and seen in consultation by urology who felt that the patient passed the stone without intervention. According to nursing, it appeared that the patient did pass a stone during his hospitalization. Patient remained medically stable, his nausea and vomiting improved. On 10/01/2022, patient was seen and examined: On examination he appeared in good health and spirits. Vital signs as documented. Skin warm and dry and without overt rashes. Neck without JVD, neck was supple, trachea midline, thyroid was normal. Lungs clear bilaterally, normal air movement was noted. Heart exam notable for regular rhythm, normal sounds and absence of murmurs, rubs or gallops. Abdomen unremarkable and without evidence of organomegaly, masses, or abdominal aortic enlargement. Bowel sounds are present, abdomen is not distended. Extremities nonedematous, no cyanosis was noted, no clubbing was noted. Neuro: Cranial nerves II through XII are grossly intact, no focal motor deficits were noted, sensation to light touch and pinprick intact, motor exam 5/5 throughout. Psych: Patient is alert and oriented x3, he does not appear anxious or depressed, he does not appear agitated. Patient appears stable for discharge home 10/01/22, Weight / BMI Weight Weight: 134.7 kg Body Mass Index (BMI) 45.1 ABG / Lab / Microbiology Data Result Diagrams: 09/29/22 17:25 10/01/22 14:58 Laboratory: Laboratory Results - last 24 hr 09/29/22 17:25: Diff Path Review Reviewed 10/01/22 14:58: Sodium 139, Potassium 3.1 L, Chloride 100, Carbon Dioxide 28.0, Anion Gap 11, BUN 7, Creatinine 0.74, Estim Creat Clear Calc 133.51, Est GFR (MDRD) Af Amer 154, Est GFR (MDRD) Non-Af 127, BUN/Creatinine Ratio 9.5 L, Glucose 107 H, Calcium 8.9 D/C Instructions Discharge Diet: No restrictions Weight Bearing Status: Full weight bearing Meaningful Use Info Meaningful Use Diagnoses (Choose all that apply): None applicable Discharge Plan Admission Admit Date/Time: 09/29/22 20:00 Primary Reason for Your Visit: right ureteral stone Attending Provider: Ramesh Villeda Primary Care Provider: Care Physician,No Primary Consulting Providers: Garrick Espinal ; Killian Mcdonough Discharge Orders/Prescriptions Prescriptions: New cephalexin 500 mg Capsule 500 mg PO Q6 Qty: 12 0RF Continued ondansetron 4 mg tablet,disintegrating 4 mg PO Q6H PRN (Reason: nausea and vomiting) Qty: 20 0RF ursodiol 300 mg capsule 300 mg PO BID Label Comments: Take 1 capsule by mouth twice daily. TO START AFTER SURGERY tizanidine 4 mg tablet 4 mg PO BID Label Comments: TAKE 1 TABLET BY MOUTH TWICE DAILY NEEDED pantoprazole 40 mg tablet,delayed release (DR/EC) 40 mg PO BID Label Comments: TAKE 1 TABLET BY MOUTH TWICE DAILY oxycodone 15 mg tablet 15 mg PO TID PRN PRN (Reason: Pain) Label Comments: TAKE 1 TABLET BY MOUTH THREE TIMES DAILY NEEDED FOR 30 DAYS original rx 09/15/22 Referrals / Follow Up: Care Physician,No Primary [Primary Care Provider] - (Follow-up with your primary care physician in the next 3 weeks) Disposition Disposition (needs filled in before D/C Order can be placed): Home, Self Care Charges/Coding Visit Charges Inpatient E&M: 85366 Disch Hosp
== END 2022-10-01 16:18 | disposition home or self-care (01) | DRG 465 ==
LOC: ED 19:11 → MS2 09-30 06:41
PROVIDERS: Internal Medicine; Admitting Provider Family Medicine; Emergency Provider Emergency Medicine; Visit Provider Internal Medicine
DX: N13.2 Hydronephrosis with renal and ureteral calculous obstruction (principal); E66.01 Morbid (severe) obesity due to excess calories; Z68.42 Body mass index [BMI] 45.0-49.9, adult; E86.0 Dehydration; E87.6 Hypokalemia; K21.9 Gastro-esophageal reflux disease without esophagitis; F17.210 Nicotine dependence, cigarettes, uncomplicated; M54.9 Dorsalgia, unspecified; N13.4 Hydroureter; G89.29 Other chronic pain; Z79.899 Other long term (current) drug therapy; Z87.442 Personal history of urinary calculi; Z98.84 Bariatric surgery status
CPT/HCPCS: 36415; 74176; 80048; 80053; 81001; 83690; 83735; 84100; 84550; 85025; 97802; 99284; J7030; J7120; A4216; J2405

== ENCOUNTER 2023-04-12 23:28 | Emergency (ER) | payer MEDICAID, SELFPAY ==
[2023-04-12 23:29] VITALS: BP 132/72; PULSE 84; RESP 16; TEMP 36.8; O2SAT 98; BMI 37.8
[2023-04-13] MEDS: dexAMETHasone 10 MG/ML Vial PO.IVFORM (00:01)
--- NOTE | 2023-04-13 00:56 | EDS_ITS ---
HPI History of Present Illness Chief Complaint: Sore Throat Informant: patient Narrative Narrative: Patient is a 37-year-old male with past medical history of chronic back pain for which he sees pain management. Patient states that in the last 24 hours he has had subjective fevers with sore throat. He denies any known sick contact. He states he is able to swallow but is painful to do so. He states he is concerned he is developed strep throat because of the symptoms and therefore comes in for evaluation. [facility] Medical History (Updated 04/13/23 @ 03:[address] Cj Alfredo, ) Abdominal wall pain Acute hypokalemia Back pain Dehydration Kidney stone Home Medications ondansetron 4 mg disintegrating tablet 4 mg PO Q6H PRN nausea and vomiting #20 tabs 09/20/22 [Rx Last Taken Unknown] ursodiol 300 mg capsule 300 mg PO BID pain after bariatric surgery 09/29/22 [History Last Taken Unknown] oxycodone 15 mg tablet 15 mg PO TID PRN PRN Pain 09/30/22 [History Last Taken Unknown] pantoprazole 40 mg tablet,delayed release 40 mg PO BID stomach 09/30/22 [History Last Taken Unknown] tizanidine 4 mg tablet 4 mg PO BID pain 09/30/22 [History Last Taken Unknown] cephalexin 500 mg capsule 500 mg PO Q6 #12 caps 10/01/22 [Rx Last Taken Unknown] amoxicillin 875 mg-potassium clavulanate 125 mg tablet 1 tab PO BID 10 days #20 tabs 04/13/23 [Rx Last Taken Unknown] prednisone 20 mg tablet 40 mg (2 x 20 mg) PO DAILY 7 days #14 tabs 04/13/23 [Rx Last Taken Unknown] Allergy/AdvReac Type Severity Reaction Status Date / Time fentanyl AdvReac Rash Verified 04/12/23 23:29 hydrocodone [From [place]] AdvReac Rash Verified 04/12/23 23:29 Surgical History S/P gastric sleeve procedure Social History Smoking Status: Current every day smoker tobacco type: cigarettes ROS ROS ED Constitutional Constitutional ED: Reports fever(s) and subjective; Denies chills ENT ENT ED: Reports sore throat; Denies ear pain or rhinorrhea Cardiovascular Cardiovascular: Denies chest pain Respiratory/Chest Respiratory/Chest: Denies cough or dyspnea Gastrointestinal Gastrointestinal: Denies abdominal pain, diarrhea, nausea or vomiting Genitourinary Genitourinary ED: Denies dysuria Musculoskeletal Musculoskeletal: Denies neck pain Integumentary Denies rash Neurologic Neurologic: Denies headache(s) Hematologic/Lymphatic Hematologic/Lymphatic: Denies easy bleeding or easy bruising EXAM Physical Exam Const Vital Signs: 04/12/23 23:29 Temperature 98.3 F Temperature Source Temporal Pulse Rate 84 Respiratory Rate 16 Blood Pressure 132/72 H Blood Pressure Mean 92 Pulse Ox 98 Positive well nourished, well developed and obese General Appearance ED: well developed Nutritional Appearance: obese HEENT HEENT Narrative: Posterior pharynx displays diffuse erythema with +2 tonsillar hypertrophy slightly larger on the left. There are white exudative plaques present as well. No hard palate petechiae. No trismus. No change in voice. No difficulty with secretions. No obvious abscess formation. Eyes PERRL and EOMs intact bilaterally Neck supple Neck Narrative: Positive anterior cervical lymphadenopathy noted No nuchal rigidity or meningeal signs present Resp normal respiratory effort and clear to auscultation bilaterally Cardio regular rate and regular rhythm Extremity normal to inspection Neuro oriented x3 and CN's II-XII intact bilaterally Sensorium / Orientation: alert Psych mental status grossly normal Skin no rashes or lesions noted MDM MDM MDM Narrative Medical decision making narrative: Patient presented to the ER with stable vitals. Differential diagnosis for sore throat is viral pharyngitis such as mono versus bacterial pharyngitis/strep. There is also possibility of peritonsillar abscess versus retropharyngeal abscess versus epiglottitis. At this time patient is able to speak in full sentences he has no derangement to his voice and no difficulty with secretions as well as no trismus. Therefore my concern for peritonsillar abscess or epiglottitis is low and I do not feel there is need for imaging studies. A rapid strep swab was obtained based on his symptoms and was positive. Therefore patient be started on antibiotics and steroids secondary to his infectious process but as he has no signs of respiratory distress or systemic infection is otherwise safe for discharge History & Record Review Discussion w/independent historian: Patient Discharge Plan Triage Chief Complaint: Sore Throat ED Provider: Cj Alfredo Dx/Rx/DC Orders Clinical Impression: Acute streptococcal pharyngitis, Chronic low back pain Instructions: ED Pharyngitis, Strep (Confirmed) Prescriptions: New prednisone 20 mg tablet 40 mg PO DAILY 7 Days Qty: 14 0RF amoxicillin-pot clavulanate 875-125 mg tablet 1 tab PO BID 10 Days Qty: 20 0RF No Action ondansetron 4 mg tablet,disintegrating 4 mg PO Q6H PRN (Reason: nausea and vomiting) Qty: 20 0RF ursodiol 300 mg capsule 300 mg PO BID Patient Comments: Take 1 capsule by mouth twice daily. TO START AFTER SURGERY tizanidine 4 mg tablet 4 mg PO BID Patient Comments: TAKE 1 TABLET BY MOUTH TWICE DAILY NEEDED pantoprazole 40 mg tablet,delayed release (DR/EC) 40 mg PO BID Patient Comments: TAKE 1 TABLET BY MOUTH TWICE DAILY oxycodone 15 mg tablet 15 mg PO TID PRN PRN (Reason: Pain) Patient Comments: TAKE 1 TABLET BY MOUTH THREE TIMES DAILY NEEDED FOR 30 DAYS original rx 09/15/22 cephalexin 500 mg Capsule 500 mg PO Q6 Qty: 12 0RF Primary Care Provider: Care Physician,No Primary Referrals: Garrick Espinal MD [Med Staff - Active Staff] - Care Physician,No Primary [Primary Care Provider] - Disposition Disposition: Home, Self Care Discharge Date/Time: 04/13/23 01:06
[2023-04-13] MEDS: Amox/Clavulanate 875 MG Tablet PO (01:03)
[2023-04-13] MEDS: Oxycodone/Apap 5/325 Tablet PO (01:03)
== END 2023-04-13 01:06 | disposition home or self-care (01) ==
PROVIDERS: Emergency Provider Emergency Medicine; Visit Provider Emergency Medicine
DX: J02.0 Streptococcal pharyngitis (principal); M54.50 Low back pain, unspecified; G89.29 Other chronic pain; F17.210 Nicotine dependence, cigarettes, uncomplicated; E66.9 Obesity, unspecified
CPT/HCPCS: 87880; 99283

== ENCOUNTER 2024-01-06 22:34 | Emergency (ER) | payer MEDICAID, SELFPAY ==
[2024-01-06 22:35] VITALS: BP 128/67; PULSE 66; RESP 16; TEMP 36.6; O2SAT 99; BMI 35.3
--- NOTE | 2024-01-06 23:15 | EDS_ITS ---
HPI History of Present Illness Chief Complaint: Male Pain/Injury Narrative Narrative: 38-year-old male presenting with left groin pain. He states he has had it for about 2 years and he states he typically takes oxycodone 3 times a day and the pain is worse today. He states the oxycodone is not helping the pain. He states that he was kicking a soccer ball today and when he was mid swing swinging through with his left leg he felt some pain that was sharp in the left proximal thigh which is where he has been having pain for the last couple years. He denies any direct injury. He has been able to ambulate. He does not have any numbness or tingling. He was concerned he likely had a hernia in this area. Denies any urinary complaints. He is not have any GI complaints. [facility] Medical History Abdominal wall pain Acute hypokalemia Back pain Dehydration Kidney stone Home Medications ondansetron 4 mg disintegrating tablet 4 mg PO Q6H PRN nausea and vomiting #20 tabs 09/20/22 [Rx Last Taken Unknown] ursodiol 300 mg capsule 300 mg PO BID pain after bariatric surgery 09/29/22 [History Last Taken Unknown] oxycodone 15 mg tablet 15 mg PO TID PRN PRN Pain 09/30/22 [History Last Taken Unknown] pantoprazole 40 mg tablet,delayed release 40 mg PO BID stomach 09/30/22 [History Last Taken Unknown] tizanidine 4 mg tablet 4 mg PO BID pain 09/30/22 [History Last Taken Unknown] cephalexin 500 mg capsule 500 mg PO Q6 #12 caps 10/01/22 [Rx Last Taken Unknown] amoxicillin 875 mg-potassium clavulanate 125 mg tablet 1 tab PO BID 10 days #20 tabs 04/13/23 [Rx Last Taken Unknown] prednisone 20 mg tablet 40 mg (2 x 20 mg) PO DAILY 7 days #14 tabs 04/13/23 [Rx Last Taken Unknown] Allergy/AdvReac Type Severity Reaction Status Date / Time fentanyl AdvReac Rash Verified 01/06/24 22:38 hydrocodone [From [place]] AdvReac Rash Verified 01/06/24 22:38 Surgical History S/P gastric sleeve procedure Social History Smoking Status: Current every day smoker tobacco type: cigarettes ROS ROS ED Review of Systems ROS Unobtainable: due to encephalopathy Constitutional Constitutional ED: Denies chills or fever(s) Eyes Eyes: Denies change in vision ENT ENT ED: Denies rhinorrhea or sore throat Cardiovascular Cardiovascular: Denies chest pain or palpitations Respiratory/Chest Respiratory/Chest: Denies cough or dyspnea Gastrointestinal Gastrointestinal: Denies abdominal pain, nausea or vomiting Genitourinary Genitourinary ED: Denies dysuria or hematuria Musculoskeletal Musculoskeletal: Reports other Details: Left proximal thigh pain ; Denies arthralgias Neurologic Neurologic: Denies headache(s) Psychiatric Psychiatric: Denies anxiety or depression EXAM Physical Exam Const Vital Signs: 01/06/24 22:35 Temperature 97.8 F Temperature Source Temporal Pulse Rate 66 Respiratory Rate 16 Blood Pressure 128/67 H Blood Pressure Mean 87 Pulse Ox 99 Oxygen Delivery Method Room Air Positive well nourished General Appearance ED: Negative for pallor HEENT Reports dry mucous membranes normocephalic and atraumatic Mouth ED: Yes dry mucous membranes Mouth: dry mucous membranes Eyes PERRL and EOMs intact bilaterally Neck no lymphadenopathy Cardio regular rate and regular rhythm GI non-tender and non-distended Extremity Extremity Narrative: With 24 there is intact there is tenderness to palpation in the mid proximal thigh of the left leg. There is no mass or hernia palpated. There are no rashes and no bruising. Patient has no limitation in range of motion. Neuro oriented x3 and CN's II-XII intact bilaterally Sensorium / Orientation: alert Motor Exam: strength 5/5 throughout Psych mental status grossly normal Skin General Skin Exam: Negative for jaundice or pallor MDM MDM MDM Narrative Medical decision making narrative: 38-year-old male presenting with left inguinal pain. He states has had this for 2 years and has been worse over the last 2 months. Today while kicking a soccer ball with his left leg and mid swing he felt sharp pain in this area. He states he takes oxycodone at home for chronic pains and he states it is not helping it. He has been ambulatory and does not have any numbness or tingling. When I entered the room he was in his pants and I requested that he get into a gown so I can fully examine him which he did. When I came back in to evaluate him his exam was most consistent with a muscle strain. I do not feel any hernias. I do not feel any masses. There is no evidence of infection or bruising. Patient was up and ambulating. He initially requested an x-ray and I told him that it likely would be diagnostic because I think he tore a muscle in his thigh. He then stated that he wanted something done and wanted a CT scan and I counseled him that I be happy to do this however I would need to get some basic lab work first in order to assess his kidney function so I can give this a few contrast and at this point he became angry and felt as if I was not trying to help him. I explained to them him that I cannot get a contrasted CT without his kidney function and once that is clear I can do a CT with contrast so we can rule out still the concerns that he has as he feels there is something emergent here. At this point he then stated that he at least would want an x-ray and I can personnel counselor him that an x-ray would probably not be helpful and also counseled him that likely would not see anything on the CT if he had a muscle strain at this point he became more angry and felt as if it was not trying to help. I again offered him lab work and a CT scan the patient became more angry stating that I did not want him. I reassured him that I did not and I be happy to do lab work and a CT but I cannot get the CT with contrast without the labs and at this point he walked out of the room. I tried to redirect him several times and reassured him several times we can do imaging and blood work he will just have to patient did well at the hospital and he left the ER. Impression: 1. Left groin pain Discharge Plan Triage Chief Complaint: Male Pain/Injury Other Complaint: Lower Extremity Injury ED Provider: Garrison Rodriguez Dx/Rx/DC Orders Prescriptions: No Action ondansetron 4 mg tablet,disintegrating 4 mg PO Q6H PRN (Reason: nausea and vomiting) Qty: 20 0RF ursodiol 300 mg capsule 300 mg PO BID Patient Comments: Take 1 capsule by mouth twice daily. TO START AFTER SURGERY tizanidine 4 mg tablet 4 mg PO BID Patient Comments: TAKE 1 TABLET BY MOUTH TWICE DAILY NEEDED pantoprazole 40 mg tablet,delayed release (DR/EC) 40 mg PO BID Patient Comments: TAKE 1 TABLET BY MOUTH TWICE DAILY oxycodone 15 mg tablet 15 mg PO TID PRN PRN (Reason: Pain) Patient Comments: TAKE 1 TABLET BY MOUTH THREE TIMES DAILY NEEDED FOR 30 DAYS original rx 09/15/22 cephalexin 500 mg Capsule 500 mg PO Q6 Qty: 12 0RF prednisone 20 mg tablet 40 mg PO DAILY 7 Days Qty: 14 0RF amoxicillin-pot clavulanate 875-125 mg tablet 1 tab PO BID 10 Days Qty: 20 0RF Primary Care Provider: Care Physician,No Primary Referrals: Care Physician,No Primary [Primary Care Provider] -
--- NOTE | 2024-01-07 00:20 | ED.RN ---
Patient unhappy with interaction with Dr. Rodriguez. Patient decides he doesn't want testing offered by Dr. Rodriguez. Patient ambulates out of department without difficulty.
== END 2024-01-07 00:23 | disposition left against medical advice (07) ==
PROVIDERS: Emergency Provider Student in an Organized Health Care Education/Training Program; Visit Provider Student in an Organized Health Care Education/Training Program
DX: R10.32 Left lower quadrant pain (principal); G89.29 Other chronic pain; F17.210 Nicotine dependence, cigarettes, uncomplicated; Z79.899 Other long term (current) drug therapy
CPT/HCPCS: 99283